=== PATIENT | male | born 2000 | race Two or more races ===

== ENCOUNTER 2021-12-06 14:14 | Emergency (ER) | payer MEDICAID ==
[2021-12-06] MEDS ORDERED: IBUPROFEN 800 MG TAB PO ONE (17:15)
[2021-12-06] MEDS ORDERED: IBUP800T27 PO (17:20)
[2021-12-06 17:32] VITALS: BP 135/70
== END 2021-12-06 17:06 | disposition home or self-care (01) ==
LOC: ER 14:14
DX: B34.9 Viral infection, unspecified (principal); R51.9 Headache, unspecified; Z20.822 Contact with and (suspected) exposure to COVID-19
CPT/HCPCS: 36415

== ENCOUNTER 2022-01-25 12:24 | Emergency (ER) | payer MEDICAID ==
[~2022-01-25] VITALS: Ht 180.3 cm; Wt 55.0 kg
[~2022-01-25 12:24] MED LIST: IBUP800T27 PO
[2022-01-25 13:40] LABS: Urine Bacteria NONE SEEN /hpf (None Seen); Urine Blood Negative /uL (Negative); Urine Mucus FEW (None Seen); Urine Specific Gravity 1.031 (1.001-1.035); Urine WBC 1 /hpf (0 - 3)
[2022-01-25] MEDS ORDERED: ONDA-144 PO (14:55)
[2022-01-25] MEDS ORDERED: PANT40TA2 PO (14:55)
[2022-01-25 15:05] VITALS: BP 119/93
== END 2022-01-25 15:08 | disposition home or self-care (01) ==
LOC: ER 12:24
DX: R11.2 Nausea with vomiting, unspecified (principal)
CPT/HCPCS: 81001

== ENCOUNTER 2023-06-04 15:38 | Emergency (ER) | payer MEDICAID ==
[~2023-06-04] VITALS: Ht 154.9 cm; Wt 126.3 kg
[~2023-06-04 15:38] MED LIST changes: +IBUP-1456 PO; -IBUP800T27 PO; +ONDA-144 PO; +PANT40TA2 PO
[2023-06-04] MEDS ORDERED: ONDANSETRON ODT 4 MG TAB PO ONE (17:15)
[2023-06-04] MEDS ORDERED: MECLIZINE HCL 25 MG TAB PO ONE (17:15)
[2023-06-04 17:40] LABS: Basophils # (auto) 0.1 10 ^3/uL (0-0.2); Basophils % (auto) 0.4 % (0.0-2.0); Eosinophils # (auto) 0.1 10 ^3/uL (0-0.8); Eosinophils % (auto) 0.6 % (0.0-7.0); Hematocrit 47.1 % (41.0-53.0); Hemoglobin 15.3 g/dL (13.5-17.5); Lymphocytes # (auto) 2.6 10 ^3/uL (0.4-5.4); Lymphocytes % (auto) 18.1 % (10.0-50.0); Mean Corpuscular Hemoglobin 27.3 pg (28.0-32.0); Mean Corpuscular Hgb Conc. 32.4 g/dL (32.0-36.0); Mean Corpuscular Volume 84.1 fL (80.0-100.0); Monocytes # (auto) 0.8 10 ^3/uL (0-1.3); Monocytes % (auto) 5.6 % (0.0-12.0); Neutrophils # (auto) 10.8 10 ^3/uL (1.6-8.6); Neutrophils % (auto) 75.3 % (37.0-80.0); Red Cell Distribution Width 13.1 % (11.8-14.3); White Blood Cell 14.4 10^3/uL (4.4-10.8)
[2023-06-04 18:01] LABS: Alanine Aminotransferase 64 U/L (7-40); Albumin 4.5 g/dL (3.2-4.8); Alkaline Phosphatase 115 U/L (46-116); Anion Gap 6 (5-15); Aspartate Aminotransferase 25 U/L (13-40); Bilirubin, Total 0.3 mg/dL (0.2-1.0); Calcium 9.8 mg/dL (8.5-10.1); Carbon Dioxide 29 mmol/L (20-30); Chloride 104 mmol/L (98-107); Glucose 90 mg/dL (74-106); Potassium 3.9 mmol/L (3.5-5.1); Sodium 139 mmol/L (136-145); Total Protein 7.2 g/dL (5.7-8.2)
[2023-06-04 18:56] LABS: BUN/Creatinine Ratio 5.9 (10.0-20.0); Blood Urea Nitrogen < 5 mg/dL (9-23)
[2023-06-04 20:31] LABS: Urine Epithelial Cast None Seen /hpf (<5)
[2023-06-04 20:48] LABS: Urine Bacteria NONE SEEN /hpf (None Seen); Urine Blood Negative /uL (Negative); Urine Clarity Clear (Clear); Urine Color Yellow (Yellow); Urine Mucus FEW (None Seen); Urine Protein, UAD TRACE (Negative); Urine Specific Gravity 1.025 (1.001-1.035); Urine WBC <1 /hpf (0 - 3); Urine pH 6.5 (5.0-8.0)
[2023-06-04 20:55] LABS: Amphetamine Screen, Urine Neg (NEGATIVE); Benzodiazephine Screen, Urine Neg (NEGATIVE)
[2023-06-04 20:56] LABS: Barbiturate Scree,Urine Neg (NEGATIVE); Cannabinoid Screen, Urine Neg (NEGATIVE); Cocaine Screen, Urine Neg (NEGATIVE); Opiate Scree,Urine Neg (NEGATIVE); Phencyclidine Screen, Urine Neg (NEGATIVE)
[2023-06-04] MEDS ORDERED: MECL1TAB42 PO (21:16)
[2023-06-04] MEDS ORDERED: ZOFR4T PO (21:16)
[2023-06-04 22:45] VITALS: BP 146/87; PULSE 96; RESP 18; TEMP 98; O2SAT 97
== END 2023-06-04 22:45 | disposition home or self-care (01) ==
LOC: ER 15:38
DX: R42 Dizziness and giddiness (principal); T50.905A Adverse effect of unspecified drugs, medicaments and biological substances, initial encounter; R11.0 Nausea; F41.9 Anxiety disorder, unspecified; F20.9 Schizophrenia, unspecified; Z79.899 Other long term (current) drug therapy; Y92.9 Unspecified place or not applicable
CPT/HCPCS: 36415; 71046; 80053; 80307; 81001; 85025; 99284; J8597; Q0162

== ENCOUNTER 2023-07-29 12:39 | Emergency (ER) | payer MEDICAID ==
[~2023-07-29] VITALS: Ht 180.3 cm; Wt 138.5 kg
[~2023-07-29 12:39] MED LIST changes: +MECL1TAB42 PO; +ZOFR4T PO
[2023-07-29 13:37] LABS: Amphetamine Screen, Urine Neg (NEGATIVE); Barbiturate Scree,Urine Neg (NEGATIVE); Benzodiazephine Screen, Urine Neg (NEGATIVE); Cocaine Screen, Urine Neg (NEGATIVE)
[2023-07-29 13:38] LABS: Cannabinoid Screen, Urine Neg (NEGATIVE); Opiate Scree,Urine Neg (NEGATIVE); Phencyclidine Screen, Urine Neg (NEGATIVE)
[2023-07-29 15:55] VITALS: BP 113/69; PULSE 78; RESP 18; O2SAT 97
[2023-07-29] MEDS: ONDANSETRON ODT 4 MG TAB PO ONE (15:56)
== END 2023-07-29 16:05 | disposition home or self-care (01) ==
LOC: ER 12:39
DX: F41.9 Anxiety disorder, unspecified (principal); F20.9 Schizophrenia, unspecified; F31.9 Bipolar disorder, unspecified; Z79.899 Other long term (current) drug therapy
CPT/HCPCS: 80307; 99283; Q0162

== ENCOUNTER 2024-03-26 22:51 | Inpatient (IN) | payer MEDICAID ==
[~2024-03-26] VITALS: Ht 175.3 cm; Wt 134.5 kg
[2024-03-26 23:03] VITALS: PULSE 73; RESP 28; O2SAT 97
--- NOTE | 2024-03-26 23:35 | ED.PDOC ---
History of Present Illness HPI Comments 23 y/o M, with a Hx of anxiety, depression, and schizophrenia, is BIBA s/p overdose, today. Patient reports consuming all of his Abilify medications after having a "hallucination," where he received a phone-call from an unknown individual, instructing him to take his "pills" in order to "hurt himself" or, if not, him and his entire family wound be "hurt." Patient states on having similar hallucinations in the past. Patient admits to feeling better, now. Patient denies having any suicidal/homicidal ideations or any symptoms at this time. Chief Complaint: Overdose Time Seen by MD: 23:20 Primary Care Provider: SNEHA Johansen Notes: Nurses Notes, Ward Aide Notes, Medications, Allergies Allergies: Coded Allergies: Fluoxetine (Verified Allergy, Unknown, 07/29/23) Home Meds Active Scripts Ondansetron Odt 4MG Tab (ZOFRAN PO) 4 Mg Tb, 4 MG PO Q6HP PRN, #15 TAB ODT TAB-DISSOLVE IN MOUTH, THEN SWALLOW Prov:LALI BERNSTEIN PAC 06/04/23 Meclizine HCl (Meclizine 25) 25 Mg Tab, 25 MG PO Q8HP PRN, #10 TAB Prov:LALI BERNSTEIN PAC 06/04/23 Ondansetron (Zofran) 4 Mg Tab, 4 MG PO DAILY, #20 MG Prov:DESTINEY SHOEMAKER DO 01/25/22 Pantoprazole Sodium Sesquihydr (Protonix) 40 Mg Tab, 40 MG PO DAILY, #30 TAB Prov:DESTINEY SHOEMAKER DO 01/25/22 Ibuprofen (Ibuprofen) 800 Mg Tab, 800 MG PO TID PRN, #30 TAB Prov:PURVI SELLERS 12/06/21 Information Source: Patient, Emergency Med Personnel Mode of Arrival: EMS Severity: Moderate Timing: Hours Duration: Since onset Prehospital treatment: 12 Lead EKG, Accucheck (138), Bone Crusher, Other (18G LAC) Past Medical History PAST MEDICAL HISTORY: Anxiety, Depression, Schizophrenia Surgical History: Denies all surgeries Family History Family History: Reviewed,noncontributory to illness Social History Smoker: Other (nicotine vape ) Alcohol: Denies ETOH Use Drugs: Denies Drug Use Lives In: Home Constitutional: denies: chills, diaphoresis, fatigue, fever, malaise, sweats, weakness, others EENTM: denies: blurred vision, double vision, ear bleeding, ear discharge, ear drainage, ear pain, ear ringing, eye pain, eye redness, hearing loss, mouth pain, mouth swelling, nasal discharge, nose bleeding, nose congestion, nose pain, photophobia, tearing, throat pain, throat swelling, voice changes, others Respiratory: denies: cough, hemoptysis, orthopnea, SOB at rest, shortness of breath, SOB with excertion, stridor, wheezing, others Cardiovascular: denies: chest pain, dizzy spells, diaphoresis, Dyspnea on exertion, edema, irregular heart beat, left arm pain, lightheadedness, palpitations, PND, syncope, others Gastrointestinal: denies: abdomen distended, abdominal pain, blood streaked bowels, constipated, diarrhea, dysphagia, difficulty swallowing, hematemesis, melena, nausea, poor appetite, poor fluid intake, rectal bleeding, rectal pain, vomiting, others Genitourinary: denies: burning, dysuria, flank pain, frequency, hematuria, incontinence, penile discharge, penile sore, pain, testicle pain, testicle swelling, urgency, others Neurological: denies: dizziness, fainting, headache, left sided numbness, left sided weakness, numbness, paresthesia, pre-existing deficit, right sided numbness, right sided weakness, seizure, speech problems, tingling, tremors, weakness, others Musculoskeletal: denies: back pain, gout, joint pain, joint swelling, muscle pain, muscle stiffness, neck pain, others Integumetry: denies: bruises, change in color, change in hair/nails, dryness, laceration, lesions, lumps, rash, wounds, others Allergic/Immunocompromised: denies: Difficulty Healing, Frequent Infections, Hives, Itching, others Hematologic/Lymphatic: denies: anemia, blood clots, easy bleeding, easy bruising, swollen glands, others Endocrine: denies: excessive hunger, excessive sweating, excessive thirst, excessive urination, flushing, intolerance to cold, intolerance to heat, unexplained weight gain, unexplained weight loss, others Psychiatric: denies: anxiety, bipolar disorder, depression, hopeless, panic disorder, schizophrenia, sleepless, suicidal, others All Other Systems: Reviewed and Negative Physical Exam General Appearance: Moderate Distress HEENT: Normal ENT Inspection, Pharynx Normal, TMs Normal Neck: Full Range of Motion, Non-Tender, Normal, Normal Inspection Respiratory: Chest Non-Tender, Lungs Clear, No Accessory Muscle Use, No Respiratory Distress, Normal Breath Sounds Cardiovascular: No Edema, No JVD, No Murmur, No Gallop, Normal Peripheral Pulses, Regular Rate/Rhythm Breast Exam: Deferred Gastrointestinal: No Organomegaly, Non Tender, No Pulsatile Mass, Normal Bowel Sounds, Soft Genitalia: Deferred Pelvic: Deferred Rectal: Deferred Extremities: No calf tenderness, Normal capillary refill, Normal inspection, Normal range of motion, Non-tender, No pedal edema Musculoskeletal : Apperance: Normal Neurologic: Alert, 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 Was a procedure done?: No EKG EKG : Pulse Rate (adult): 74 [place]: Normal Cardiac Rhythm: NSR Block: None Hypertrophy: None ST: Normal Differential Dx Considerations may include: substance abuse, substance overdose, schizophrenia X-Ray, Labs, Meds, VS Vital Signs Date Time Temp Pulse Resp B/P (MAP) Pulse Ox O2 Delivery O2 Flow Rate FiO2 03/26/24 23:35 74 03/26/24 23:03 74 03/26/24 22:55 98.9 83 23 124/79 (94) 96 Lab Test 03/26/24 23:47 03/26/24 23:30 Range/Units White Blood Count Pending Red Blood Count Pending Hemoglobin Pending Hematocrit Pending Mean Corpuscular Volume Pending Mean Corpuscular Hemoglobin Pending Mean Corpuscular Hemoglobin Concent Pending Red Cell Distribution Width Pending Platelet Count Pending Mean Platelet Volume Pending Neutrophils (%) (Auto) Pending Lymphocytes (%) (Auto) Pending Monocytes (%) (Auto) Pending Basophils (%) (Auto) Pending Neutrophils # (Auto) Pending Lymphocytes # (Auto) Pending Monocytes # (Auto) Pending Sodium Level Pending Potassium Level Pending Chloride Level Pending Carbon Dioxide Level Pending Anion Gap Pending Blood Urea Nitrogen Pending Creatinine Pending Glomerular Filtration Rate Calc Pending BUN/Creatinine Ratio Pending Serum Glucose Pending Calcium Level Pending Total Bilirubin Pending Aspartate Amino Transferase (AST) Pending Alanine Aminotransferase (ALT) Pending Alkaline Phosphatase Pending Total Protein Pending Albumin Pending Salicylates Level Pending Acetaminophen Level Pending Plasma/Serum Blood Alcohol Pending Urine Opiates Screen Pending Urine Fentanyl Screen Pending Urine Barbiturates Screen Pending Urine Phencyclidine Screen Pending Urine Amphetamines Screen Pending Urine Benzodiazepines Screen Pending Urine Cocaine Screen Pending Urine Cannabinoids Screen Pending Patient alert. Answering all questions appropriately. Hearing voices. Vitals stable. History of schizophrenia. Voices were telling him to harm himself. Patient denies suicidal or homicidal ideation in the ER. Reviewed his history. Explained to the patient treatment plan. Medically cleared. Psychiatric evaluation. Time of 1ST Reevaluation: 23:50 Reevaluation 1ST: Improved Patient Education/Counseling: Diagnosis, Treatment Family Education/Counseling: No Family Present Departure 1 Departure Time of Disposition: 00:02 Impression: Primary Impression: Suicidal ideation Additional Impressions: Hallucination Schizophrenia Qualified Codes: F20.9 - Schizophrenia, unspecified Disposition: 30 STILL A PATIENT Condition: Good Critical Care Note Critical Care Time?: Yes (45 min-critical care time only) Stability Stability form required: No Heart Score Heart Score: Heart Score Response (Comments) Value History N/A 0 EKG N/A 0 Age N/A 0 Risk Factors N/A 0 Troponin N/A 0 Total 0 I personally scribed for EDWAR LAWS MD ([email or web address]) on 03/26/24 at 23:35. Electronically submitted by Bhanu Tripp ([email or web address]). EDWAR LAWS MD Mar 26, 2024 23:35
[2024-03-27] LABS: Basophils # (auto) 0 10 ^3/uL (0-0.2); Basophils % (auto) 0.5 % (0.0-2.0); Eosinophils # (auto) 0.1 10 ^3/uL (0-0.8); Eosinophils % (auto) 0.8 % (0.0-7.0); Hematocrit 42.2 % (41.0-53.0); Lymphocytes # (auto) 3.7 10 ^3/uL (0.4-5.4); Mean Corpuscular Hemoglobin 27.6 pg (28.0-32.0); Mean Corpuscular Hgb Conc. 33.1 g/dL (32.0-36.0); Mean Corpuscular Volume 83.4 fL (80.0-100.0); Monocytes # (auto) 0.6 10 ^3/uL (0-1.3); Monocytes % (auto) 6.7 % (0.0-12.0); Nucleated Red Blood Cells % 0.1 %; Platelet Count (auto) 295 10^3/uL (140-450); Red Blood Cells 5.06 10^6/uL (4.5-5.90); Red Cell Distribution Width 13.3 % (11.8-14.3); White Blood Cell 8.4 10^3/uL (4.4-10.8)
[2024-03-27 00:13] LABS: Amphetamine Screen, Urine Neg (NEGATIVE); Barbiturate Scree,Urine Neg (NEGATIVE); Benzodiazephine Screen, Urine Neg (NEGATIVE)
[2024-03-27 00:14] LABS: Cannabinoid Screen, Urine Neg (NEGATIVE); Cocaine Screen, Urine Neg (NEGATIVE); Opiate Scree,Urine Neg (NEGATIVE); Phencyclidine Screen, Urine Neg (NEGATIVE)
[2024-03-27 00:15] LABS: Acetaminophen < 2.0 UG/ML (10.0-20.0)
[2024-03-27 00:16] LABS: Alanine Aminotransferase 66 U/L (7-40); Albumin 4.2 g/dL (3.2-4.8); Alkaline Phosphatase 97 U/L (46-116); Anion Gap 6 (5-15); Aspartate Aminotransferase 26 U/L (13-40); Bilirubin, Total 0.2 mg/dL (0.2-1.0); Blood Alcohol < 3.0 mg/dL (<10); Blood Urea Nitrogen 5 mg/dL (9-23); Calcium 9.4 mg/dL (8.7-10.4); Carbon Dioxide 26 mmol/L (20-31); Chloride 108 mmol/L (98-107); Glucose 117 mg/dL (74-106); Potassium 3.7 mmol/L (3.5-5.1); Sodium 140 mmol/L (136-145); Total Protein 6.9 g/dL (5.7-8.2)
[2024-03-27 00:31] LABS: Salicylate < 3.0 mg/dL (-30)
[2024-03-27 07:30] VITALS: O2SAT 97
--- NOTE | 2024-03-27 09:59 | DVHINCON2 ---
Date of Service if different f: Mar 27, 2024 Time of Service: 09:26 Consultation ([facility]) Consulting Physician: JESSE JACOBSON MD Labs Laboratory Tests Test 03/26/24 23:30 03/26/24 23:47 Urine Opiates Screen Neg (NEGATIVE) Urine Fentanyl Screen Neg (NEGATIVE) Urine Barbiturates Screen Neg (NEGATIVE) Urine Phencyclidine Screen Neg (NEGATIVE) Urine Amphetamines Screen Neg (NEGATIVE) Urine Benzodiazepines Screen Neg (NEGATIVE) Urine Cocaine Screen Neg (NEGATIVE) Urine Cannabinoids Screen Neg (NEGATIVE) White Blood Count 8.4 10^3/uL (4.4-10.8) Red Blood Count 5.06 10^6/uL (4.5-5.90) Hemoglobin 14.0 g/dL (13.5-17.5) Hematocrit 42.2 % (41.0-53.0) Mean Corpuscular Volume 83.4 fL (80.0-100.0) Mean Corpuscular Hemoglobin 27.6 pg (28.0-32.0) Mean Corpuscular Hemoglobin Concent 33.1 g/dL (32.0-36.0) Red Cell Distribution Width 13.3 % (11.8-14.3) Platelet Count 295 10^3/uL (140-450) Mean Platelet Volume 7.2 fL (6.9-10.8) Neutrophils (%) (Auto) 48.0 % (37.0-80.0) Lymphocytes (%) (Auto) 44.0 % (10.0-50.0) Monocytes (%) (Auto) 6.7 % (0.0-12.0) Eosinophils (%) (Auto) 0.8 % (0.0-7.0) Basophils (%) (Auto) 0.5 % (0.0-2.0) Neutrophils # (Auto) 4.0 10 ^3/uL (1.6-8.6) Lymphocytes # (Auto) 3.7 10 ^3/uL (0.4-5.4) Monocytes # (Auto) 0.6 10 ^3/uL (0-1.3) Eosinophils # (Auto) 0.1 10 ^3/uL (0-0.8) Basophils # (Auto) 0 10 ^3/uL (0-0.2) Nucleated Red Blood Cells 0.1 % Sodium Level 140 mmol/L (136-145) Potassium Level 3.7 mmol/L (3.5-5.1) Chloride Level 108 mmol/L (98-107) Carbon Dioxide Level 26 mmol/L (20-31) Anion Gap 6 (5-15) Blood Urea Nitrogen 5 mg/dL (9-23) Creatinine 0.84 mg/dL (0.700-1.30) Glomerular Filtration Rate Calc 125 mL/min (>90) BUN/Creatinine Ratio 6.0 (10.0-20.0) Serum Glucose 117 mg/dL (74-106) Calcium Level 9.4 mg/dL (8.7-10.4) Total Bilirubin 0.2 mg/dL (0.2-1.0) Aspartate Amino Transf (AST/SGOT) 26 U/L (13-40) Alanine Aminotransferase (ALT/SGPT) 66 U/L (7-40) Alkaline Phosphatase 97 U/L (46-116) Total Protein 6.9 g/dL (5.7-8.2) Albumin 4.2 g/dL (3.2-4.8) Salicylates Level < 3.0 mg/dL (-30) Acetaminophen Level < 2.0 UG/ML (10.0-20.0) Plasma/Serum Blood Alcohol < 3.0 mg/dL (<10) Appearance: Stated age Psychomotor activity: WNL Behavioral: Cooperative Eye contact: Appropriate Speech: WNL, Clear Affect: Appropriate, Mood Congruent Mood: Anxious Thought processes: Linear/Goal-directed Thought content: Hallucinations Suicidal ideations: Absent Homicidal ideations: Absent Orientation: Person, Place, Time, Situation Memory intact: Recent Intellect: Average Abstractability: WNL Concentration: Adequate Attention: Adequate Judgement: Poor Insight: Fair Vitals Vital Signs Date Time Temp Pulse Resp B/P (MAP) Pulse Ox O2 Delivery O2 Flow Rate FiO2 03/27/24 06:00 73 15 110/70 (83) 96 03/26/24 23:03 Room Air* 0 21 03/26/24 23:03 98.8 98.8 Treatment plan discussed: With staff Medication adjusted: Yes Labs ordered: No Psychotherapy provided: No Type: Voluntary History of Present Illness Reason for Consult : psychiatric evaluation for overdose. PER ED PHYSICIAN: 23 y/o M, with a Hx of anxiety, depression, and schizophrenia, is BIBA s/p overdose, today. Patient reports consuming all of his Abilify medications after having a "hallucination," where he received a phone-call from an unknown individual, instructing him to take his "pills" in order to "hurt himself" or, if not, him and his entire family wound be "hurt." Patient states on having similar hallucinations in the past. Patient admits to feeling better, now. Patient denies having any suicidal/homicidal ideations or any symptoms at this time. PSYCHIATRIST HPI: The patient was seen and evaluated at [facility] ED via telepsychiatry platform. 23 yr old male CHHAYA after taking 30 abilify tablets. He stated he heard a voice which told him to take all his abilify. He reported "I thought i had a phone call telling me to do something to myself or they would do something to my family." He stated that was the first time he had that experience. He reported the hallucinations have been going on for a couple weeks. Yesterday was the first time he felt the hallucination was real, so it scared him into taking the medications. He said his mood has been doing pretty good. His anger has been decreasing and he stated he learned to control his anger and aggression. He stated aggression was an issue for him in the past, but not lately. He denied having SI/HI/VH. Past Psychiatric History : More than ten hospitalizations, last hospitalized in beginning of 2023 at [facility] in [place]. Four past suicide attempts. Diagnosed with schizophrenia since age 12. Sees Psychological Services on [facility]. Current medications: abilify 5 mg qam Trazodone 50mg qhs Venlafaxine XR 75mg qam Hydroxyzine 50mg PRN Divalproex 1500mg qhs Substance use: Denied alcohol and other substance use. Social History : Lives in [place] with mother and roommates. Received GED. Unemployed. Receives SSI. Diagnosis: SCHIZOPHRENIA Formulation: This 23 yr old male appears to suffer from schizophrenia and had a command auditory hallucination leading him to take a large overdose of his medication. Given this following the command auditory hallucination puts him at high risk for self harm. He may benefit from admission to [facility] for observation, stabilization and treatment. He meets criteria for involuntary hospitalization on basis of danger to self and agrees to voluntary admission. Plan: 1. Transfer to behavioral health unit when medically cleared and bed available. 2. Legal-Voluntary, but meets criteria for 5150 involuntary hold on basis of danger to self. 3. Medications : Recommend holding the abilify on 03/27 due to the overdose last night (03/26) and restart Abilify 5mg qam Start Trazodone 50mg qhs for sleep Hydroxyzine 50mg BID PRN for anxiety Depakote DR 1500mg qhs Venalafaxine XR 75mg qam 4. Case discussed with ED RN Malissa. 5. Please contact psychiatry for further follow up or reevaluation as desired. Assessment/Diagnosis/Plan Reviewed: Medications, Previous Orders JESSE JACOBSON MD Mar 27, 2024 09:28
--- NOTE | 2024-03-27 10:57 | ECG ---
[facility] Test Date: 2024-03-26 Test Time: 23:03:19 Pat Name: LUZ MARINA EMERSONNICOLEODepartment: ER Room: 0274T Gender: M [employer] Developer: YADIRA : 2000 Requested By: EDWAR LAWS Order Number: [id number] Reading MD: Sheng Ortiz Measurements Intervals [place] Rate: 74 P: 65 GA: 151 QRS: 88 QRSD: 92 T: 66 QT: 383 QTc: 425 Interpretive Statements Sinus rhythm Electronically Signed On 03-30-2024 11:15:21 PST by Sheng Ortiz Please click the below link to view image of tracing.
[2024-03-27] MEDS: VENLAFAXINE HCL 37.5mg XR cap PO ONE (12:19)
[2024-03-27] MEDS: LORazepam 2MG/ML-1ML VIAL IV ONE ×2 (14:13→14:45)
[2024-03-27] MEDS: diphenhdrAMINE HCL 50 MG/1 ML VL IV ONE (15:33)
[2024-03-27] MEDS: SODIUM CHLORIDE 0.9% 1,000 ML IV ONE (15:47)
[2024-03-27 16:04] LABS: Basophils # (auto) 0.1 10 ^3/uL (0-0.2); Basophils % (auto) 0.6 % (0.0-2.0); Eosinophils # (auto) 0.1 10 ^3/uL (0-0.8); Eosinophils % (auto) 0.6 % (0.0-7.0); Hematocrit 44.2 % (41.0-53.0); Hemoglobin 15.2 g/dL (13.5-17.5); Lymphocytes # (auto) 3.4 10 ^3/uL (0.4-5.4); Lymphocytes % (auto) 37.1 % (10.0-50.0); Mean Corpuscular Hemoglobin 28.7 pg (28.0-32.0); Mean Corpuscular Hgb Conc. 34.4 g/dL (32.0-36.0); Mean Corpuscular Volume 83.4 fL (80.0-100.0); Monocytes # (auto) 0.6 10 ^3/uL (0-1.3); Monocytes % (auto) 6.1 % (0.0-12.0); Neutrophils # (auto) 5.1 10 ^3/uL (1.6-8.6); Neutrophils % (auto) 55.6 % (37.0-80.0); Platelet Count (auto) 324 10^3/uL (140-450); Red Cell Distribution Width 13.1 % (11.8-14.3); White Blood Cell 9.2 10^3/uL (4.4-10.8)
[2024-03-27 16:22] LABS: Acetaminophen < 2.0 UG/ML (10.0-20.0); Alanine Aminotransferase 61 U/L (7-40); Alkaline Phosphatase 102 U/L (46-116); Anion Gap 9 (5-15); Aspartate Aminotransferase 24 U/L (13-40); BUN/Creatinine Ratio 5.3 (10.0-20.0); Blood Alcohol < 3.0 mg/dL (<10); Blood Urea Nitrogen 5 mg/dL (9-23); Calcium 9.4 mg/dL (8.7-10.4); Carbon Dioxide 25 mmol/L (20-31); Chloride 107 mmol/L (98-107); Glucose 115 mg/dL (74-106); Potassium 3.7 mmol/L (3.5-5.1); Sodium 141 mmol/L (136-145)
[2024-03-27 16:23] LABS: Albumin 4.4 g/dL (3.2-4.8); Bilirubin, Total 0.2 mg/dL (0.2-1.0); Total Protein 7.3 g/dL (5.7-8.2)
[2024-03-27 16:48] LABS: Salicylate < 3.0 mg/dL (-30)
[2024-03-27] MEDS ORDERED: IBUPROFEN 600 MG TAB PO PRN (17:00)
[2024-03-27] MEDS ORDERED: NITROGLYCERIN 0.4 MG SL TAB SL PRN (17:00)
[2024-03-27] MEDS ORDERED: MORPHINE SULFATE INJ 2 MG/ml SYRG IV PRN (17:00)
[2024-03-27] MEDS ORDERED: DOCUSATE SOD 100 MG CAP PO PRN (17:00)
--- NOTE | 2024-03-27 17:02 | DVHHP2 ---
History of Present Illness Reason for Visit: Suicidal ideation History of Present Illness The patient is a 23-year-old male with past medical history of depression, anxiety, and schizophrenia who presented to [facility] ED for evaluation suicidal ideation by drugs overdose. Patient reports consuming all of his Abilify medications after having a "hallucination," where he received a phone-call from an unknown individual, instructing him to take his "pills" in order to "hurt himself" or, if not, him and his entire family wound be "hurt." Patient states on having similar hallucinations in the past. He is also increasingly sedated with tremors and will need to be admitted to the hospital for better observation. Patient was seen and evaluated in the ED, laboratory data shows WBC 9.2, platelets 324, sodium 141, potassium 3.7, BUN 6, creatinine 0.94, glucose 115, AST 24, ALT 61, blood pressure 116/81, heart rate 79, t emperature 98.1 F, O2 saturation 97% on oxygen. Please see medication orders section in the computer. On my assessment, mother at bedside, patient denied chest pain, no headache, no dizziness, no shortness of breath, no suicidal/homicidal ideation, no visual or auditory hallucination at this moment, no nausea, no vomiting, no fever, no chills. Patient was admitted for further evaluation and medical management. Past Medical History Anxiety, Depression, Schizophrenia Past Surgical History Denies all surgeries Family History Reviewed, noncontributory to the management of this case. Past Social History Patient lives at home, smokes nicotine vape, denies alcohol or illicit drugs abuse. Review of Systems Constitutional: Yes: Weakness; No: Fever, Chills, Sweats, Malaise, Other Eyes: No: Pain, Vision change, Conjunctivae inflammation, Eyelid inflammation, Other, Redness ENT: No: Ear pain, Ear discharge, Nose pain, Nose discharge, Nose congestion, Mouth pain, Mouth swelling, Throat pain, Throat swelling, Other Respiratory: No: Cough, Dry, Shortness of breath, SOB with excertion, Wheezing, Hemoptysis, Pleuritic Pain, Sputum, Wheezing, Other Cardiovascular: No: Chest Pain, Palpitations, Orthopnea, Paroxysmal Noc. Dyspnea, Edema, Lt Headedness, Other Gastrointestinal: No: Nausea, Vomiting, Abdominal Pain, Diarrhea, Constipation, Melena, Hematochezia, Other Genitourinary: No Dysuria, No Frequency, No Incontinence, No Hematuria, No Retention, No Other Musculoskeletal: No: other, neck pain, shoulder pain, arm pain, back pain, hand pain, leg pain, foot pain Neurological: No: Weakness, Numbness, Incoordination, Change in speech, Confusion, Seizures, Other Other Psychiatric: Schizophrenia, suicidal ideation, depression, hallucination, denies: anxiety, bipolar disorder, hopeless, panic disorder, sleepless, suicida l, others Allergies: Coded Allergies: Fluoxetine (Verified Allergy, Unknown, 07/29/23) Medications Current Medications Medications Dose Ordered Sig/Rosalba Route Start Time Stop Time Status Last Admin Dose Admin Hydroxyzine Pamoate 50 mg BID PRN PO 03/27/24 11:30 Trazodone HCl 50 mg HS PO 03/27/24 22:00 Divalproex Sodium 1,500 mg HS PO 03/27/24 22:00 Venlafaxine HCl 75 mg DAILY PO 03/28/24 10:00 Sodium Chloride 10 ml Q8HR IV 03/27/24 22:00 UNV Ondansetron HCl 4 mg Q4HP PRN IV 03/27/24 17:00 UNV Docusate Sodium 100 mg BIDPRN PRN PO 03/27/24 17:00 UNV Nitroglycerin 0.4 mg Q5MINP PRN SL 03/27/24 17:00 UNV Morphine Sulfate 2 mg Q30M PRN IV 03/27/24 17:00 UNV Ibuprofen 600 mg Q6HP PRN PO 03/27/24 17:00 UNV Exam Vital Signs Vital Signs Date Time Temp Pulse Resp B/P (MAP) Pulse Ox O2 Delivery O2 Flow Rate FiO2 03/27/24 10:51 79 03/27/24 09:00 10 116/81 (93) 97 03/27/24 07:30 Room Air* 0 21 03/27/24 07:00 98.1 98.1 General Appearance: Alert, Oriented X3, Cooperative, No acute distress HEENT: Atraumatic, PERRLA, EOMI, Mucous membr. moist/pink Respiratory: Clear to auscultation, Normal air movement Cardiovascular: Regular rate, Normal S1, Normal S2, No murmurs Abdominal: Normal bowel sounds, Soft, No tenderness, No hepatospenomegaly, No masses Extremities: No clubbing, No cyanosis, No edema, Normal pulses, No tenderness/swelling Skin: No rashes, No breakdown, No significant lesion Neuro: Normal speech, Normal tone, Sensation intact, Cranial nerves 3-12 NL, Reflexes 2+, Other (Generalized weakness) Psych/Mental Status: Mental status NL, Mood NL Labs/Xrays Labs Test 03/27/24 15:43 03/26/24 23:30 Range/Units White Blood Count 9.2 4.4-10.8 10^3/uL Red Blood Count 5.30 4.5-5.90 10^6/uL Hemoglobin 15.2 13.5-17.5 g/dL Hematocrit 44.2 41.0-53.0 % Mean Corpuscular Volume 83.4 80.0-100.0 fL Mean Corpuscular Hemoglobin 28.7 28.0-32.0 pg Mean Corpuscular Hemoglobin Concent 34.4 32.0-36.0 g/dL Red Cell Distribution Width 13.1 11.8-14.3 % Platelet Count 324 140-450 10^3/uL Mean Platelet Volume 7.3 6.9-10.8 fL Neutrophils (%) (Auto) 55.6 37.0-80.0 % Lymphocytes (%) (Auto) 37.1 10.0-50.0 % Monocytes (%) (Auto) 6.1 0.0-12.0 % Eosinophils (%) (Auto) 0.6 0.0-7.0 % Basophils (%) (Auto) 0.6 0.0-2.0 % Neutrophils # (Auto) 5.1 1.6-8.6 10 ^3/uL Lymphocytes # (Auto) 3.4 0.4-5.4 10 ^3/uL Monocytes # (Auto) 0.6 0-1.3 10 ^3/uL Eosinophils # (Auto) 0.1 0-0.8 10 ^3/uL Basophils # (Auto) 0.1 0-0.2 10 ^3/uL Nucleated Red Blood Cells 0.0 % Sodium Level 141 136-145 mmol/L Potassium Level 3.7 3.5-5.1 mmol/L Chloride Level 107 98-107 mmol/L Carbon Dioxide Level 25 20-31 mmol/L Anion Gap 9 5-15 Blood Urea Nitrogen 5 L 9-23 mg/dL Creatinine 0.94 0.700-1.30 mg/dL Glomerular Filtration Rate Calc 116 >90 mL/min BUN/Creatinine Ratio 5.3 L 10.0-20.0 Serum Glucose 115 H 74-106 mg/dL Calcium Level 9.4 8.7-10.4 mg/dL Total Bilirubin 0.2 0.2-1.0 mg/dL Aspartate Amino Transferase (AST) 24 13-40 U/L Alanine Aminotransferase (ALT) 61 H 7-40 U/L Alkaline Phosphatase 102 46-116 U/L Total Protein 7.3 5.7-8.2 g/dL Albumin 4.4 3.2-4.8 g/dL Salicylates Level < 3.0 -30 mg/dL Acetaminophen Level < 2.0 L 10.0-20.0 UG/ML Plasma/Serum Blood Alcohol < 3.0 <10 mg/dL Urine Opiates Screen Neg NEGATIVE Urine Fentanyl Screen Neg NEGATIVE Urine Barbiturates Screen Neg NEGATIVE Urine Phencyclidine Screen Neg NEGATIVE Urine Amphetamines Screen Neg NEGATIVE Urine Benzodiazepines Screen Neg NEGATIVE Urine Cocaine Screen Neg NEGATIVE Urine Cannabinoids Screen Neg NEGATIVE Assessment/Plan Assessment/Plan Suicidal ideation Tremor due to drug withdrawal Hallucination Schizophrenia Schizophrenia, unspecified Plan 1. Admit to telemetry unit 2. Breathing treatment 3. Pain control management 4. Management of fluids and electrolytes 5. Consultation for Psychiatry 6. Diagnostic tests x-ray 7. DVT prophylaxis-on SCDs 8. Repeat labs CBC, CMP in a.m. 9. Continue with current medical management 10. Treatment plan discussed with patient and RN. Patient/mother verbalized understanding. Plan discussed with: Patient, Other (RN) My Orders Orders - MATTY DARLING DNP Procedure Category Date Status Time Admit ADMIT 03/27/24 Transmitted 16:53 Allergies MINO 03/27/24 Transmitted 16:53 Code Status CODE 03/27/24 Transmitted 16:53 Sodium Chloride Lock PHA 03/27/24 Logged (Saline Lock Ns) 22:00 Oxygen Per Hour RT 03/27/24 Transmitted 16:53 Ondansetron Hcl PHA 03/27/24 Logged (Zofran) 17:00 Docusate Sodium PHA 03/27/24 Logged Capsule (Colace 17:00 Complete Blood Count LAB 03/28/24 Verified 04:00 Comprehensive LAB 03/28/24 Verified Metabolic Panel 04:00 Condition: Serious [facility] 03/27/24 Transmitted 16:53 Bedrest With Bathroom [facility] 03/27/24 Transmitted Privileg 16:53 Sequential [facility] 03/27/24 Transmitted Compression Device Nitroglycerin [facility] 03/27/24 Logged Sublingual (Ntrostat 17:00 Morphine Sulfate [facility] 03/27/24 Logged Injection 17:00 Notify Of Changes [facility] 03/27/24 Transmitted From Base 16:53 Make Up Editor For [facility] 03/27/24 Transmitted 24 Hours 16:53 Emergency Dysrhythmia [facility] 03/27/24 Transmitted Protocol 16:53 Rhythm Strips Once [facility] 03/27/24 Transmitted Every Shift 16:53 Oxygen By Nasal 03/27/24 Transmitted Cannula 16:53 Ibuprofen Tablet [facility] 03/27/24 Logged (Motrin Tablet) 17:00 Problem List: (1) Suicidal ideation (2) Schizophrenia (3) Tremor due to drug withdrawal (4) Hallucination (5) Schizophrenia, unspecified Date of Service: Mar 27, 2024 Billing Provider: MATTY DARLING DNP Common Visit Codes: [id number] INP/OBS CARE (HIGH) MATTY DARLING DNP Mar 27, 2024 17:02
[2024-03-27] MEDS: SODIUM CHLOR 0.9% PF (SALINE LOCK) 10ML VIAL/SYR IV SCH (21:04)
[2024-03-27] MEDS: traZODone HCL 50 MG TAB PO SCH (21:50)
[2024-03-27] MEDS ORDERED: traZODone HCL 50 MG TAB PO ONE (22:00)
[2024-03-28 04:07] LABS: Basophils # (auto) 0 10 ^3/uL (0-0.2); Basophils % (auto) 0.3 % (0.0-2.0); Eosinophils # (auto) 0.1 10 ^3/uL (0-0.8); Eosinophils % (auto) 0.7 % (0.0-7.0); Hematocrit 42.2 % (41.0-53.0); Hemoglobin 14.2 g/dL (13.5-17.5); Lymphocytes # (auto) 4.1 10 ^3/uL (0.4-5.4); Lymphocytes % (auto) 45.2 % (10.0-50.0); Mean Corpuscular Hemoglobin 28.2 pg (28.0-32.0); Mean Corpuscular Hgb Conc. 33.6 g/dL (32.0-36.0); Monocytes # (auto) 0.5 10 ^3/uL (0-1.3); Monocytes % (auto) 5.9 % (0.0-12.0); Neutrophils # (auto) 4.3 10 ^3/uL (1.6-8.6); Neutrophils % (auto) 47.9 % (37.0-80.0); Platelet Count (auto) 290 10^3/uL (140-450); Red Blood Cells 5.03 10^6/uL (4.5-5.90); Red Cell Distribution Width 13.4 % (11.8-14.3)
[2024-03-28 04:14] LABS: Alanine Aminotransferase 49 U/L (7-40); Albumin 4.1 g/dL (3.2-4.8); Alkaline Phosphatase 85 U/L (46-116); Anion Gap 5 (5-15); Aspartate Aminotransferase 14 U/L (13-40); BUN/Creatinine Ratio 6.3 (10.0-20.0); Bilirubin, Total 0.5 mg/dL (0.2-1.0); Blood Urea Nitrogen 6 mg/dL (9-23); Calcium 9.5 mg/dL (8.7-10.4); Carbon Dioxide 29 mmol/L (20-31); Chloride 109 mmol/L (98-107); Glucose 85 mg/dL (74-106); Potassium 4.2 mmol/L (3.5-5.1); Sodium 143 mmol/L (136-145); Total Protein 6.7 g/dL (5.7-8.2)
[2024-03-28 09:00] VITALS: PULSE 75; O2SAT 99
[2024-03-28] MEDS: VENLAFAXINE HCL 37.5mg XR cap PO SCH (10:17)
--- NOTE | 2024-03-28 14:43 | DVH ---
EXAM: CT HEAD WITHOUT CONTRAST INDICATION: seizure TECHNIQUE: CT of the head without intravenous contrast. Coronal and sagittal reformatted images are submitted. Radiation Dose : 1. Head: CT Dose: CTDI volume is 65.54 mGy. Dose-length product is 1050.42 mGy*cm The dose indicators for CT are the volume Computed Tomography (CT) Dose Index (CTDIvol) and the Dose Length Product (DLP), and are measured in units of mGy and mGy-cm, respectively. These indicators are not patient dose, but values generated from the CT scanner acquisition factors. The report includes radiation exposure data for exposures received during this examination. All CT scans at this medical facility are performed using dose modulation techniques as appropriate to a performed exam including the following: Automated exposure control was utilized; adjustment of the MA and/or KV according to patient size; and use of iterative reconstruction technique. COMPARISON: None FINDINGS: There is no evidence of acute intracranial hemorrhage, extra-axial collection, mass effect, midline s hift, herniation or hydrocephalus. The ventricles, sulci and cisterns are age appropriate. The lafleur-white differentiation is intact. The visualized paranasal sinuses and mastoid air cells are clear. No depressed calvarial fracture. The surrounding soft tissues are unremarkable. IMPRESSION: 1. No evidence of acute intracranial abnormality.
--- NOTE | 2024-03-28 16:09 | DVHPN2 ---
Subjective 23-year-old male with a history of depression, schizophrenia, seizures came with a chief complaint of having taken about 15 pills of Abilify 5 mg. He takes 5 mg daily of Abilify usually but apparently he was having hallucinations and voices told him to take the pills. He is completely alert and oriented now Changes from previous H/P or p: Changes Eyes: No Pain, No Vision change, No Conjunctivae inflammation, No Eyelid inflammation, No Other, No Redness ENT: No Ear pain, No Ear discharge, No Nose pain, No Nose discharge, No Nose congestion, No Mouth pain, No Mouth swelling, No Throat pain, No Throat swelling, No Other Cardiovascular: No Chest Pain, No Palpitations, No Orthopnea, No Paroxysmal Noc. Dyspnea, No Edema, No Lt Headedness, No Other Respiratory: No Cough, No Dry, No Shortness of breath, No SOB with excertion, No Wheezing, No Hemoptysis, No Pleuritic Pain, No Sputum, No Other Gastrointestinal: No Nausea, No Vomiting, No Abdominal Pain, No Diarrhea, No Constipation, No Melena, No Hematochezia, No Other Genitourinary: No Dysuria, No Frequency, No Incontinence, No Hematuria, No Retention, No Other Musculoskeletal: No other, No neck pain, No shoulder pain, No arm pain, No back pain, No hand pain, No leg pain, No foot pain Objective Vitals Vital Signs Date Time Temp Pulse Resp B/P (MAP) Pulse Ox O2 Delivery O2 Flow Rate FiO2 03/28/24 13:36 93 18 109/60 (76) 97 03/28/24 09:00 Nasal Cannula* 2 28 03/27/24 16:00 98.4 98.4 Intake/Output Intake and Output 03/28/24 07:00 Intake Total 1000 ml Output Total 750 ml Balance 250 ml Intake IV Total 1000 ml Output Urine Total 750 ml General Appearance: Alert, Oriented X3, Cooperative, No acute distress Lungs: Clear to auscultation, Normal air movement Cardiovascular: Regular rate, Normal S1, Normal S2 Abdomen: Normal bowel sounds, Soft, No tenderness Extremities: No edema Medications Current Medications Medications Dose Ordered Sig/Rosalba Route Start Time Stop Time Status Last Admin Dose Admin Hydroxyzine Pamoate 50 mg BID PRN PO 03/27/24 11:30 Trazodone HCl 50 mg HS PO 03/27/24 22:00 03/27/24 21:50 50 MG Divalproex Sodium 1,500 mg HS PO 03/27/24 22:00 03/27/24 21:49 1,500 MG Venlafaxine HCl 75 mg DAILY PO 03/28/24 10:00 03/28/24 10:17 75 MG Sodium Chloride 10 ml Q8HR IV 03/27/24 22:00 03/28/24 14:00 10 ML Ondansetron HCl 4 mg Q4HP PRN IV 03/27/24 17:00 Docusate Sodium 100 mg BIDPRN PRN PO 03/27/24 17:00 Nitroglycerin 0.4 mg Q5MINP PRN SL 03/27/24 17:00 Morphine Sulfate 2 mg Q30M PRN IV 03/27/24 17:00 Ibuprofen 600 mg Q6HP PRN PO 03/27/24 17:00 Laboratory Results Laboratory Tests 03/28/24 03:20 Chemistry Test 03/28/24 03:20 Albumin 4.1 g/dL (3.2-4.8) Calcium Level 9.5 mg/dL (8.7-10.4) Total Protein 6.7 g/dL (5.7-8.2) LFT Test 03/28/24 03:20 Alanine Aminotransferase (ALT) 49 U/L (7-40) H Alkaline Phosphatase 85 U/L (46-116) Aspartate Amino Transferase (AST) 14 U/L (13-40) Total Bilirubin 0.5 mg/dL (0.2-1.0) Assessment/Plan Assessment/Plan Suicide attempt Drug overdose Depression Schizophrenia Rule out Seizures Morbid obesity Plan The patient was seen by tele psychiatry and was recommended to transfer to behavioral health when medically cleared 5150, voluntary, patient is willing to go to psychiatric treatment Consult neurology CT scan of the head: Negative Resume the home medications: Depakote, hydroxyzine, trazodone, Effexor Plan discussed with: Patient, Other My Orders Orders - BERNARDINO COWART MD Procedure Category Date Status Time *Consult Dr. Perkins CONS 03/28/24 Transmitted Isaac 13:[address] 03/28/24 Resulted 13:55 Date of Service: Mar 28, 2024 Billing Provider: BERNARDINO COWART MD Common Visit Codes: [id number] INP/OBS CARE(HIGH) BERNARDINO COWART MD Mar 28, 2024 16:08
[2024-03-28 19:50] VITALS: PULSE 91; RESP 12; O2SAT 97
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
[2024-03-29] VITALS (8 sets, daily range): BP systolic 90–140; BP diastolic 54–73; PULSE 71–108; RESP 17–20; TEMP 97.1–98; O2SAT 97–100
[2024-03-29] MEDS ORDERED: DIVA500T13 PO (04:06)
[2024-03-29] MEDS ORDERED: AMOX500C2 PO (04:06)
[2024-03-29] MEDS ORDERED: ARIP5TAB PO (04:06)
[2024-03-29] MEDS ORDERED: TRAZ-227 PO (04:06)
[2024-03-29] MEDS ORDERED: HYDR50TA69 PO (04:06)
[2024-03-29] MEDS ORDERED: VENL75CA78 PO (04:06)
--- NOTE | 2024-03-29 14:33 | DVHPN2 ---
Subjective Just had another seizure today EEG was done waiting on the report Once he is medically stable he will be transferred for acute psychiatric treatment Changes from previous H/P or p: Changes Eyes: No Pain, No Vision change, No Conjunctivae inflammation, No Eyelid inflammation, No Other, No Redness ENT: No Ear pain, No Ear discharge, No Nose pain, No Nose discharge, No Nose congestion, No Mouth pain, No Mouth swelling, No Throat pain, No Throat swelling, No Other Cardiovascular: No Chest Pain, No Palpitations, No Orthopnea, No Paroxysmal Noc. Dyspnea, No Edema, No Lt Headedness, No Other Respiratory: No Cough, No Dry, No Shortness of breath, No SOB with excertion, No Wheezing, No Hemoptysis, No Pleuritic Pain, No Sputum, No Other Gastrointestinal: No Nausea, No Vomiting, No Abdominal Pain, No Diarrhea, No Constipation, No Melena, No Hematochezia, No Other Genitourinary: No Dysuria, No Frequency, No Incontinence, No Hematuria, No Retention, No Other Musculoskeletal: No other, No neck pain, No shoulder pain, No arm pain, No back pain, No hand pain, No leg pain, No foot pain Objective Vitals Vital Signs Date Time Temp Pulse Resp B/P (MAP) Pulse Ox O2 Delivery O2 Flow Rate FiO2 03/29/24 13:00 98.0 71 17 90/54 (66) 97 98.0 03/29/24 08:00 Nasal Cannula* 2 28 Intake/Output Intake and Output 03/29/24 06:59 Intake Total 0 ml Output Total 700 ml Balance -700 ml Intake Oral 0 ml Output Urine Total 700 ml General Appearance: Alert, Oriented X3, Cooperative, No acute distress Lungs: Clear to auscultation, Normal air movement Cardiovascular: Regular rate, Normal S1, Normal S2 Abdomen: Normal bowel sounds, Soft, No tenderness Extremities: No edema Medications Current Medications Medications Dose Ordered Sig/Rosalba Route Start Time Stop Time Status Last Admin Dose Admin Hydroxyzine Pamoate 50 mg BID PRN PO 03/27/24 11:30 Trazodone HCl 50 mg HS PO 03/27/24 22:00 03/28/24 22:26 50 MG Venlafaxine HCl 75 mg DAILY PO 03/28/24 10:00 03/29/24 09:22 75 MG Sodium Chloride 10 ml Q8HR IV 03/27/24 22:00 03/29/24 13:52 10 ML Ondansetron HCl 4 mg Q4HP PRN IV 03/27/24 17:00 Docusate Sodium 100 mg BIDPRN PRN PO 03/27/24 17:00 Nitroglycerin 0.4 mg Q5MINP PRN SL 03/27/24 17:00 Morphine Sulfate 2 mg Q30M PRN IV 03/27/24 17:00 Ibuprofen 600 mg Q6HP PRN PO 03/27/24 17:00 Divalproex Sodium 1,000 mg HS PO 03/28/24 22:00 03/28/24 22:26 1,000 MG Divalproex Sodium 500 mg QAM PO 03/29/24 07:00 03/29/24 06:34 500 MG Lorazepam 1 mg Q5MINP PRN IV 03/28/24 21:30 Laboratory Results Laboratory Tests 03/28/24 03:20 Assessment/Plan Assessment/Plan Suicide attempt Drug overdose Depression Schizophrenia Seizure disorder Morbid obesity Plan 03/28/2024: The patient was seen by tele psychiatry and was recommended to transfer to behavioral health when medically cleared 5150, voluntary, patient is willing to go to psychiatric treatment Consult neurology CT scan of the head: Negative Resume the home medications: Depakote, hydroxyzine, trazodone, Effexor 03/29/2024: Patient had more seizures Continue Depakote 500 mg 3 times a day EEG is done, result is pending Lorazepam as needed for breakthrough seizures Effexor 75 mg daily Trazodone 50 mg daily Plan discussed with: Patient My Orders Orders - BERNARDINO COWART MD Procedure Category Date Status Time * Segregator CONS 03/29/24 Transmitted Consult 04:08 Date of Service: Mar 29, 2024 Billing Provider: BERNARDINO COWART MD Common Visit Codes: [id number] INP/OBS CARE(HIGH) BERNARDINO COWART MD Mar 29, 2024 14:33
[2024-03-29] MEDS: LORazepam 2MG/ML-1ML VIAL IV PRN (14:39)
--- NOTE | 2024-03-29 23:19 | DVHPN2 ---
Progress Note - Dictate Date Seen: Mar 29, 2024 Medical Necessity Reason Pt with a Central, PICC or Fol: No Subjective Mr. Bob is a 23 years old right-handed gentleman with a history of anxiety, depression, schizophrenia, the patient was brought to the [facility] on 03/26/24 with a chief company of overdosing with Raymundo. I have seen and examined the patient, talked to her sitter and the patient The patient was had three seizure today, but nurse suspected psychogenic in nature RN note 03/29/24 14:15 : Seizure activity. Per sitter, lasted 45 seconds, 03/29/24 15:12: Patient having full body shaking, last less than a minute. Postictal patient was immediate to giving RN arm for blood pressure and a finger for pulse ox. UDS, 03/26/2024: Negative Plasma alcohol, 03/26/2024: Normal CBC, 03/28/2024: Okay CMP, 03/28/2024: Unremarkable CT head, 03/28/24: No evidence of acute intracranial abnormality vital signs Vital Sign Date Time Temp Pulse Resp B/P (MAP) Pulse Ox O2 Delivery O2 Flow Rate FiO2 03/29/24 20:00 17 99 Nasal Cannula* 2 28 03/29/24 17:00 98.0 89 100/73 (82) 98.0 Total Intake and Output 03/28/24 03/28/24 03/29/24 15:00 23:00 07:00 Intake Total 0 ml Output Total 700 ml Balance -700 ml 0 ml medications Current Medications Medications Dose Ordered Sig/Rosalba Route Start Time Stop Time Status Last Admin Dose Admin Hydroxyzine Pamoate 50 mg BID PRN PO 03/27/24 11:30 Trazodone HCl 50 mg HS PO 03/27/24 22:00 03/29/24 21:21 50 MG Venlafaxine HCl 75 mg DAILY PO 03/28/24 10:00 03/29/24 09:22 75 MG Sodium Chloride 10 ml Q8HR IV 03/27/24 22:00 03/29/24 21:21 10 ML Ondansetron HCl 4 mg Q4HP PRN IV 03/27/24 17:00 Docusate Sodium 100 mg BIDPRN PRN PO 03/27/24 17:00 Nitroglycerin 0.4 mg Q5MINP PRN SL 03/27/24 17:00 Morphine Sulfate 2 mg Q30M PRN IV 03/27/24 17:00 Ibuprofen 600 mg Q6HP PRN PO 03/27/24 17:00 Divalproex Sodium 1,000 mg HS PO 03/28/24 22:00 03/29/24 21:21 1,000 MG Divalproex Sodium 500 mg QAM PO 03/29/24 07:00 03/29/24 06:34 500 MG Lorazepam 1 mg Q5MINP PRN IV 03/28/24 21:30 03/29/24 15:10 1 MG objective General: the patient is well developed and nourished. No acute distress. MENTAL STATUS: Awake and alert. Oriented to person, place, time and general circumstances. Able to give personal history SPEECH, LANGUAGE, HIGHER CORTICAL FUNCTION: no aphasia or dysathria. CRANIAL NERVES: Pupils are equal, round and reactive. EOMs full and conjugate. No nystagmus. Facial sensation intact in all three divisions bilaterally. Mandibular strength intact. Facial muscles symmetrical and strength intact. SENSATION: Sensation to touch and pinprick is normal. MOTOR: Normal tone in the upper and lower extremity. Normal muscle bulk. No fasciculations. No abnormal movements or posturing. Muscle strength of the major groups in the extremities is 5/5. REFLEXES: Deep tendon reflexes normal and symmetrical. No pathological reflexes. CEREBELLAR/COORDINATION: Finger to nose is normal bilaterally. GAIT/STATION: deferred. laboratory and microbiology Laboratory Tests 03/28/24 03:20 Test 03/28/24 03:20 Range/Units Serum Glucose 85 74-106 mg/dL Problem List Grand mal seizure x 3 since 03/2023, the one on 03/27/2024 was with atypical feature Seizure activity on 03/29/2024 were with atypical features Schizophrenia Abilify overdosing Assessment/Plan Monitoring Supportive treatment Telemetry 5150 hold EEG Depakote 500 mg t.i.d. Ativan for seizure breakthrough More recommendation per clinical course This medical document was created using an electronic medical record system with [employer] dictation system. Although this document has been carefully reviewed, there may still be some phonetic and typographical errors. These areas are purely typographical due to imperfections of the software programs, and do not reflect any compromise in the patient's medical care Prognosis poor Plan discussed with: Patient, Other MURALI MAC MD Mar 29, 2024 23:19
--- NOTE | 2024-03-30 00:22 | DVHEEG2 ---
Neurology EEG Procedural Note Procedural Note EXAM DATE: 03/29/2024 REFERRING DOCTOR: Dr. Mac TECHNIQUE: Eighteen channels of EEG, 2 channels of EOG, and 1 channel of EKG were recorded using the [employer] 10/20 system. CLINICAL DATA: The patient was referred for an EEG evaluation for the evidence of seizure disorder. MEDICATIONS: See chart BACKGROUND ACTIVITY: While the patient was awake, the background activity consisted of well regulated []Hz rhythmic waveforms, symmetrically distributed over both posterior quadrants and was reactive to eye opening. ACTIVATION: Hyperventilation: Not done Photic Stimulation: Not done Sleep: Noticed IMPRESSION: This is a normal EEG. No focal, lateralized, or epileptiform features are noted. If clinically indicated to rule out a seizure disorder, recommend repeat EEG with sleep deprivation. The EKG channel showed a regular heart rate of 72 per minute. [place] [address] MURALI MAC MD Mar 30, 2024 00:22
[2024-03-30 08:00] VITALS: RESP 17; O2SAT 99
[2024-03-30 08:30] VITALS: PULSE 67
--- NOTE | 2024-03-30 09:13 | DVHDS2 ---
Discharge Summary Date of Admission Mar 27, 2024 at 16:53 Date of Discharge: Mar 30, 2024 Labs/Diagnostic Data: Laboratory Results Test 03/28/24 03:20 03/27/24 15:43 03/26/24 23:30 White Blood Count 9.0 10^3/uL (4.4-10.8) Red Blood Count 5.03 10^6/uL (4.5-5.90) Hemoglobin 14.2 g/dL (13.5-17.5) Hematocrit 42.2 % (41.0-53.0) Mean Corpuscular Volume 84.0 fL (80.0-100.0) Mean Corpuscular Hemoglobin 28.2 pg (28.0-32.0) Mean Corpuscular Hemoglobin Concent 33.6 g/dL (32.0-36.0) Red Cell Distribution Width 13.4 % (11.8-14.3) Platelet Count 290 10^3/uL (140-450) Mean Platelet Volume 7.2 fL (6.9-10.8) Neutrophils (%) (Auto) 47.9 % (37.0-80.0) Lymphocytes (%) (Auto) 45.2 % (10.0-50.0) Monocytes (%) (Auto) 5.9 % (0.0-12.0) Eosinophils (%) (Auto) 0.7 % (0.0-7.0) Basophils (%) (Auto) 0.3 % (0.0-2.0) Neutrophils # (Auto) 4.3 10 ^3/uL (1.6-8.6) Lymphocytes # (Auto) 4.1 10 ^3/uL (0.4-5.4) Monocytes # (Auto) 0.5 10 ^3/uL (0-1.3) Eosinophils # (Auto) 0.1 10 ^3/uL (0-0.8) Basophils # (Auto) 0 10 ^3/uL (0-0.2) Nucleated Red Blood Cells 0.0 % Sodium Level 143 mmol/L (136-145) Potassium Level 4.2 mmol/L (3.5-5.1) Chloride Level 109 mmol/L (98-107) Carbon Dioxide Level 29 mmol/L (20-31) Anion Gap 5 (5-15) Blood Urea Nitrogen 6 mg/dL (9-23) Creatinine 0.95 mg/dL (0.700-1.30) Glomerular Filtration Rate Calc 115 mL/min (>90) BUN/Creatinine Ratio 6.3 (10.0-20.0) Serum Glucose 85 mg/dL (74-106) Calcium Level 9.5 mg/dL (8.7-10.4) Total Bilirubin 0.5 mg/dL (0.2-1.0) Aspartate Amino Transferase (AST) 14 U/L (13-40) Alanine Aminotransferase (ALT) 49 U/L (7-40) Alkaline Phosphatase 85 U/L (46-116) Total Protein 6.7 g/dL (5.7-8.2) Albumin 4.1 g/dL (3.2-4.8) Salicylates Level < 3.0 mg/dL (-30) Acetaminophen Level < 2.0 UG/ML (10.0-20.0) Plasma/Serum Blood Alcohol < 3.0 mg/dL (<10) Urine Opiates Screen Neg (NEGATIVE) Urine Fentanyl Screen Neg (NEGATIVE) Urine Barbiturates Screen Neg (NEGATIVE) Urine Phencyclidine Screen Neg (NEGATIVE) Urine Amphetamines Screen Neg (NEGATIVE) Urine Benzodiazepines Screen Neg (NEGATIVE) Urine Cocaine Screen Neg (NEGATIVE) Urine Cannabinoids Screen Neg (NEGATIVE) Other Laboratory Tests 03/28/24 03:20 Brief Hx & Hospital Course: Final diagnoses: Suicide attempt Drug overdose Depression Schizophrenia Seizures, most likely psychogenic Morbid obesity 23 year old male overdosed on Abilify because voices told him to do so, also had reported seizures. Neurology evaluation was negative Head CT is negative EEG is normal He had several more seizure-like episodes, was awake during shaking of mostly left side of body He most likely has psychogenic seizures He is clear medically for transfer to psychiatric treatment for his schizophrenia and hallucinations Condition at Discharge: Stable Final Diagnosis/Problems List Suicide attempt Drug overdose on Abilify Depression Schizophrenia Psychogenic Seizures Morbid obesity Discharge Disposition: Psychiatric Facility SNF Discharge Will this Physician continue t: No Discharge Statement: "Patient was advised to return to the ER or call 911 if any headaches, dizziness, shortness of breath, chest pain, abdominal pain, bleeding, fevers, or worsening of medical condition. Patient was counseled about treatment plan, medications, possible side effects, patientverbalized understanding. All questions were answered to the best of my ability. This discharge took greater then 30 minutes in planning, reviewing documentation, counseling the patient, and discussing with other team members." ASSESSMENT ASSESSMENT Assessment Date of Service: Mar 30, 2024 Billing Provider: BERNARDINO COWART MD Common Visit Codes: 42403-XFU/OBS DISCH DAY >30min BERNARDINO COWART MD Mar 30, 2024 09:13
[2024-03-30] MEDS: ONDANSETRON HCL 4 MG/2 ML VIAL IV PRN (13:45)
[2024-03-30] MEDS: hydrOXYzine 25 MG TAB or CAP PO PRN (17:18)
[2024-03-30 20:00] VITALS: RESP 17; O2SAT 99
== END 2024-03-30 20:37 | DRG 817 ==
LOC: EDBD 22:51 → ER 22:51 → TELE 03-27 16:53 → TELE-WESTW 03-29 03:24
PROVIDERS: ADMIT Nurse Practitioner Family; ATTEND Internal Medicine Geriatric Medicine
PROC: 4A00X4Z Measurement of Central Nervous Electrical Activity, External Approach (ICD-10-PCS; principal; 2024-03-29)
DX: T50.902A Poisoning by unspecified drugs, medicaments and biological substances, intentional self-harm, initial encounter (principal); G40.409 Other generalized epilepsy and epileptic syndromes, not intractable, without status epilepticus; R45.851 Suicidal ideations; E66.01 Morbid (severe) obesity due to excess calories; F20.9 Schizophrenia, unspecified; F17.200 Nicotine dependence, unspecified, uncomplicated; F32.A Depression, unspecified; F19.239 Other psychoactive substance dependence with withdrawal, unspecified; Z91.51 Personal history of suicidal behavior; Z83.3 Family history of diabetes mellitus; Z79.899 Other long term (current) drug therapy; Z68.41 Body mass index [BMI] 40.0-44.9, adult
CPT/HCPCS: 36415; 70450; 80053; 80307; 80320; 80329; 85025; 95819; 99291; G0378; J2405

== ENCOUNTER 2024-05-03 20:14 | Emergency (ER) | payer MEDICAID ==
[~2024-05-03] VITALS: Ht 172.7 cm; Wt 122.0 kg
[~2024-05-03 20:14] MED LIST changes: +AMOX500C2 PO; +ARIP5TAB PO; +DIVA500T13 PO; +HYDR50TA69 PO; -IBUP-1456 PO; -MECL1TAB42 PO; -ONDA-144 PO; -PANT40TA2 PO; +TRAZ-227 PO; +VENL75CA78 PO; -ZOFR4T PO
--- NOTE | 2024-05-03 20:49 | ED.PDOC ---
History of Present Illness HPI Comments 23 y/o M, with a Hx of bipolar disorder, depression, morbid obesity, schizophrenia, and seizures and a FMHX of maternal CA and DM, is BIBA for c/o overdose, today. Per EMS report, patient endorses on taking 11x 800mg Ibuprofen tablets by accident to manage right shoulder pain he has had, lately, at around 1900, this evening. Patient's vitals were stated to have been stable and within normal limits on scene and en route. At time of assessment, patient reports no symptoms, currently, including suicidal or self-harm ideations. Chief Complaint: Overdose Time Seen by MD: 20:30 Primary Care Provider: SNEHA Reviewed Notes: Nurses Notes, Paramedic Supervisor Notes, Medications, Allergies Allergies: Coded Allergies: Fluoxetine (Verified Allergy, Unknown, 07/29/23) Home Meds Reported Medications Amoxicillin Trihydrate (Amoxicillin) 500 Mg Cap, 1 CAP PO Q8HR 03/29/24 Aripiprazole (Abilify Mycite Maintenanc) 5 Mg Tab, 1 TAB PO DAILY 03/29/24 Trazodone Hcl (Trazodone Hcl) 50 Mg Tab, 1 TAB PO HS 03/29/24 Hydroxyzine Hcl (Hydroxyzine Hcl) 50 Mg Tab, 1 TAB PO DAILY 03/29/24 Venlafaxine Hcl (Venlafaxine Hcl Er) 75 Mg Cap, 1 CAP PO DAILY 03/29/24 Divalproex Sodium (Divalproex Sodium) 500 Mg Tab, 1 TAB PO DAILY 03/29/24 Information Source: Patient, Emergency Med Personnel Mode of Arrival: EMS Severity: Moderate Timing: Hours Duration: Since onset Prehospital treatment: 12 Lead EKG, Human Resources Department Supervisor Past Medical History PAST MEDICAL HISTORY: Anxiety, Depression, Schizophrenia Past Medical History (Other): bipolar disorder, morbid obesity Surgical History: Denies all surgeries Family History Family History: Reviewed,noncontributory to illness Social History Smoker: Non-Smoker Alcohol: Denies ETOH Use Drugs: Denies Drug Use Lives In: Home Constitutional: denies: chills, diaphoresis, fatigue, fever, malaise, sweats, weakness, others EENTM: denies: blurred vision, double vision, ear bleeding, ear discharge, ear drainage, ear pain, ear ringing, eye pain, eye redness, hearing loss, mouth pain, mouth swelling, nasal discharge, nose bleeding, nose congestion, nose pain, photophobia, tearing, throat pain, throat swelling, voice changes, others Respiratory: denies: cough, hemoptysis, orthopnea, SOB at rest, shortness of breath, SOB with excertion, stridor, wheezing, others Cardiovascular: denies: chest pain, dizzy spells, diaphoresis, Dyspnea on exertion, edema, irregular heart beat, left arm pain, lightheadedness, palpitations, PND, syncope, others Gastrointestinal: denies: abdomen distended, abdominal pain, blood streaked bowels, constipated, diarrhea, dysphagia, difficulty swallowing, hematemesis, melena, nausea, poor appetite, poor fluid intake, rectal bleeding, rectal pain, vomiting, others Genitourinary: denies: burning, dysuria, flank pain, frequency, hematuria, incontinence, penile discharge, penile sore, pain, testicle pain, testicle swelling, urgency, others Neurological: denies: dizziness, fainting, headache, left sided numbness, left sided weakness, numbness, paresthesia, pre-existing deficit, right sided numbness, right sided weakness, seizure, speech problems, tingling, tremors, weakness, others Musculoskeletal: denies: back pain, gout, joint pain, joint swelling, muscle pain, muscle stiffness, neck pain, others Integumetry: denies: bruises, change in color, change in hair/nails, dryness, laceration, lesions, lumps, rash, wounds, others Allergic/Immunocompromised: denies: Difficulty Healing, Frequent Infections, Hives, Itching, others Hematologic/Lymphatic: denies: anemia, blood clots, easy bleeding, easy bruising, swollen glands, others Endocrine: denies: excessive hunger, excessive sweating, excessive thirst, excessive urination, flushing, intolerance to cold, intolerance to heat, unexplained weight gain, unexplained weight loss, others Psychiatric: denies: anxiety, bipolar disorder, depression, hopeless, panic disorder, schizophrenia, sleepless, suicidal, others All Other Systems: Reviewed and Negative Physical Exam General Appearance: No Apparent Distress HEENT: Normal ENT Inspection, Pharynx Normal, TMs Normal Neck: Full Range of Motion, Non-Tender, Normal, Normal Inspection Respiratory: Chest Non-Tender, Lungs Clear, No Accessory Muscle Use, No Respiratory Distress, Normal Breath Sounds Cardiovascular: No Edema, No JVD, No Murmur, No Gallop, Normal Peripheral Pulses, Regular Rate/Rhythm Breast Exam: Deferred Gastrointestinal: No Organomegaly, Non Tender, No Pulsatile Mass, Normal Bowel Sounds, Soft Genitalia: Deferred Pelvic: Deferred Rectal: Deferred Extremities: No calf tenderness, Normal capillary refill, Normal inspection, Normal range of motion, Non-tender, No pedal edema Musculoskeletal : Apperance: Normal Neurologic: Alert, unload associate II-XII nml as Tested, No Motor Deficits, Normal Affect, Normal Mood, No Sensory Deficits Cerebellar Function: Normal Reflexes: Normal Skin: Dry, Normal Color, Warm Lymphatic: No Adenopathy Was a procedure done? Was a procedure done?: No Differential Dx Considerations may include: overdose, inappropriate medication intake X-Ray, Labs, Meds, VS Vital Signs Date Time Temp Pulse Resp B/P (MAP) Pulse Ox O2 Delivery O2 Flow Rate FiO2 05/03/24 20:14 97.0 100 17 133/86 (102) 96 Lab Test 05/03/24 20:51 Range/Units White Blood Count Pending Red Blood Count Pending Hemoglobin Pending Hematocrit Pending Mean Corpuscular Volume Pending Mean Corpuscular Hemoglobin Pending Mean Corpuscular Hemoglobin Concent Pending Red Cell Distribution Width Pending Platelet Count Pending Mean Platelet Volume Pending Neutrophils (%) (Auto) Pending Lymphocytes (%) (Auto) Pending Monocytes (%) (Auto) Pending Basophils (%) (Auto) Pending Neutrophils # (Auto) Pending Lymphocytes # (Auto) Pending Monocytes # (Auto) Pending Sodium Level Pending Potassium Level Pending Chloride Level Pending Carbon Dioxide Level Pending Anion Gap Pending Blood Urea Nitrogen Pending Creatinine Pending Glomerular Filtration Rate Calc Pending BUN/Creatinine Ratio Pending Serum Glucose Pending Calcium Level Pending Total Bilirubin Pending Aspartate Amino Transferase (AST) Pending Alanine Aminotransferase (ALT) Pending Alkaline Phosphatase Pending Total Protein Pending Albumin Pending Salicylates Level Pending Acetaminophen Level Pending Plasma/Serum Blood Alcohol Pending At this time, the patient's CBC and chemistry panel pending the salicylate as well as the acetaminophen level and alcohol level are pending Did speak with poison control and they stated that the patient will be observed for approximately 4 hours The patient will be signed out to Dr. Michel The patient was being signed out as this time. The patient was currently under the observation Time of 1ST Reevaluation: 21:00 Reevaluation 1ST: Unchanged Patient Education/Counseling: Diagnosis, Treatment, Prognosis Family Education/Counseling: No Family Present Departure 1 Departure Time of Disposition: 21:22 Impression: Primary Impression: Accidental ibuprofen overdose Qualified Codes: T39.311A - Poisoning by propionic acid derivatives, accidental (unintentional), initial encounter Disposition: 30 STILL A PATIENT Condition: Fair Critical Care Note Critical Care Time?: No Stability Stability form required: No Heart Score Heart Score: Heart Score Response (Comments) Value History N/A 0 EKG N/A 0 Age N/A 0 Risk Factors N/A 0 Troponin N/A 0 Total 0 I personally scribed for MALIK CASTELAN MD ([email or web address]) on 05/03/24 at 20:49. Electronically submitted by Bhanu Tripp ([email or web address]). MALIK CASTELAN MD May 03, 2024 20:49
[2024-05-03 21:15] LABS: Basophils # (auto) 0 10 ^3/uL (0-0.2); Basophils % (auto) 0.2 % (0.0-2.0); Eosinophils # (auto) 0.1 10 ^3/uL (0-0.8); Eosinophils % (auto) 0.6 % (0.0-7.0); Hematocrit 42.5 % (41.0-53.0); Hemoglobin 14.4 g/dL (13.5-17.5); Lymphocytes # (auto) 3.8 10 ^3/uL (0.4-5.4); Lymphocytes % (auto) 32.8 % (10.0-50.0); Mean Corpuscular Hemoglobin 28.3 pg (28.0-32.0); Mean Corpuscular Hgb Conc. 33.8 g/dL (32.0-36.0); Mean Corpuscular Volume 83.7 fL (80.0-100.0); Monocytes # (auto) 1.1 10 ^3/uL (0-1.3); Monocytes % (auto) 9.7 % (0.0-12.0); Neutrophils # (auto) 6.5 10 ^3/uL (1.6-8.6); Neutrophils % (auto) 56.7 % (37.0-80.0); Nucleated Red Blood Cells % 0.1 %; Platelet Count (auto) 279 10^3/uL (140-450); Red Blood Cells 5.07 10^6/uL (4.5-5.90); Red Cell Distribution Width 13.6 % (11.8-14.3); White Blood Cell 11.5 10^3/uL (4.4-10.8)
[2024-05-03 21:32] LABS: Albumin 4.3 g/dL (3.2-4.8); Anion Gap 6 (5-15); Aspartate Aminotransferase 19 U/L (13-40); Blood Alcohol < 3.0 mg/dL (<10); Blood Urea Nitrogen 12 mg/dL (9-23); Calcium 9.6 mg/dL (8.7-10.4); Carbon Dioxide 27 mmol/L (20-31); Chloride 106 mmol/L (98-107); Potassium 4.5 mmol/L (3.5-5.1); Sodium 139 mmol/L (136-145)
[2024-05-03 21:33] LABS: Total Protein 7.1 g/dL (5.7-8.2)
[2024-05-03 21:36] LABS: Acetaminophen < 2.0 UG/ML (10.0-20.0); Alanine Aminotransferase 45 U/L (7-40); Alkaline Phosphatase 129 U/L (46-116); Bilirubin, Total < 0.2 mg/dL (0.2-1.0); Glucose 136 mg/dL (74-106)
[2024-05-03 21:58] LABS: Salicylate < 3.0 mg/dL (-30)
[2024-05-03 22:30] LABS: Amphetamine Screen, Urine Neg (NEGATIVE); Benzodiazephine Screen, Urine Neg (NEGATIVE); Cannabinoid Screen, Urine Neg (NEGATIVE); Cocaine Screen, Urine Neg (NEGATIVE); Opiate Scree,Urine Neg (NEGATIVE); Phencyclidine Screen, Urine Neg (NEGATIVE)
[2024-05-03 22:42] LABS: Barbiturate Scree,Urine Neg (NEGATIVE)
[2024-05-04 02:00] VITALS: BP 132/74; PULSE 105; RESP 16; TEMP 97.5; O2SAT 98
--- NOTE | 2024-05-05 09:24 | ECG ---
[facility] Test Date: 2024-05-03 Test Time: 20:46:27 Pat Name: LUZ MARINA BALLESTEROS Department: ER Room: Gender: M Health Care Attorney: YADIRA : 2000 Requested By: MALIK CASTELAN Order Number: [id number] Reading MD: Sheng Ortiz Measurements Intervals [place] Rate: 106 P: 50 SC: 140 QRS: 94 QRSD: 101 T: 23 QT: 341 QTc: 453 Interpretive Statements Sinus tachycardia Borderline right axis deviation Borderline low voltage, extremity leads Electronically Signed On 05-05-2024 12:48:20 PST by Sheng Ortiz Please click the below link to view image of tracing.
== END 2024-05-04 02:05 | disposition home or self-care (01) ==
LOC: EDBD 20:14 → ER 20:14
DX: T39.311A Poisoning by propionic acid derivatives, accidental (unintentional), initial encounter (principal); F20.9 Schizophrenia, unspecified; Z88.8 Allergy status to other drugs, medicaments and biological substances; Z79.899 Other long term (current) drug therapy; Y92.89 Other specified places as the place of occurrence of the external cause
CPT/HCPCS: 36415; 80053; 80307; 80320; 80329; 85025; 93005

== ENCOUNTER 2024-06-03 22:56 | Emergency (ER) | payer MEDICAID ==
[~2024-06-03] VITALS: Ht 180.3 cm; Wt 109.0 kg
[2024-06-04 00:30] LABS: Basophils # (auto) 0 10 ^3/uL (0-0.2); Basophils % (auto) 0.5 % (0.0-2.0); Eosinophils # (auto) 0.1 10 ^3/uL (0-0.8); Hematocrit 42.4 % (41.0-53.0); Hemoglobin 14.2 g/dL (13.5-17.5); Lymphocytes # (auto) 3.3 10 ^3/uL (0.4-5.4); Lymphocytes % (auto) 36.1 % (10.0-50.0); Mean Corpuscular Hemoglobin 28.1 pg (28.0-32.0); Mean Corpuscular Hgb Conc. 33.5 g/dL (32.0-36.0); Monocytes # (auto) 0.9 10 ^3/uL (0-1.3); Monocytes % (auto) 10.3 % (0.0-12.0); Neutrophils # (auto) 4.7 10 ^3/uL (1.6-8.6); Neutrophils % (auto) 52.1 % (37.0-80.0); Nucleated Red Blood Cells % 0.1 %; Platelet Count (auto) 288 10^3/uL (140-450); Red Blood Cells 5.05 10^6/uL (4.5-5.90); Red Cell Distribution Width 13.4 % (11.8-14.3)
[2024-06-04 00:47] LABS: Albumin 4.5 g/dL (3.2-4.8); Alkaline Phosphatase 109 U/L (46-116); Anion Gap 8 (5-15); Aspartate Aminotransferase 29 U/L (13-40); BUN/Creatinine Ratio 9.5 (10.0-20.0); Calcium 9.8 mg/dL (8.7-10.4); Carbon Dioxide 26 mmol/L (20-31); Chloride 104 mmol/L (98-107); Sodium 138 mmol/L (136-145); Total Protein 7.5 g/dL (5.7-8.2)
[2024-06-04 00:55] VITALS: O2SAT 94
--- NOTE | 2024-06-04 00:57 | ED.PDOC ---
Psychiatric HPI Comments 23-year-old male into emergency room via EMS due to suicidal ideations. Patient has history of anxiety, depression, schizophrenia and seizures. Claims he has good compliance to his medications. He does have history of previous suicide attempts by cutting and overdose of pills At about 2230 hours he intentionally took 30 tablets of Motrin 800 mg in an attempt to harm himself. Currently complaining of abdominal pain but denies any nausea or vomiting. Patient admits to auditory and visual hallucinations with the voices telling him to harm himself. Chief Complaint: Suicidal Time Seen by MD: 00:53 Primary Care Provider: SNEHA Information Source: Patient Mode of Arrival: EMS Severity: Unable to Care for Self, Unable to Control Self Severity of Pain: Moderate Severity of Mental Status: Moderate Severity of Symptoms: Moderate Timing: Hours Duration: Since onset Prehospital treatment: None Presents with: Depression, Anxiety, Unclear Thinking, Bizarre Behavior, Suicidal Ideation Attempt: Ingestion Ingestion: Intentional, Multiple, Ingestion Observed, Drug(s) Ingested (Motrin 800 mg), Amount Ingested (30 tablets) Circumstance: Medical Clearance Stressors: Relationships History of: Depression, Anxiety, Schizophrenia, Suicidal Attempt Associated signs and symptoms: Depression, Hopeless, Anxiety, Hallucinations, Abdominal Pain Review of Systems REVIEW OF SYSTEMS: No fever, no chills, or fatigue HEENT: No sore throat, no earache, no congestion, no neck pain. Cardiac: No chest pain. No palpitations. Lungs: No shortness of breath, no cough. GI: No nausea, no vomiting, no diarrhea, no constipation, (+) abdominal pain : No dysuria, frequency, or urgency. No hematuria. Musculoskeletal: No joint pain , no joint swelling, no extremity edema. Skin: No rash, no itching. Neuro: No headache, no dizziness, no weakness (+) suicidal Vital Signs Vital Signs Date Time Temp Pulse Resp B/P (MAP) Pulse Ox O2 Delivery O2 Flow Rate FiO2 06/04/24 05:00 83 15 123/74 (90) 94 06/04/24 01:00 97.7 97.7 06/04/24 00:55 Room Air* 0 21 Physical Exam General: Awake, alert and oriented. No acute distress. Skin: Skin in warm, dry and intact. Appropriate color for ethnicity. Nailbeds pink with no cyanosis. HEENT: The head is normocephalic and atraumatic. Conjunctivae are clear without exudates or hemorrhage. Sclera is non-icteric. EOM are intact. No signs of nystagmus. Eyelids are normal in appearance without swelling or lesions. Oral mucosa is pink and moist Neck: The neck is supple with normal range of motion. No JVD. Cardiac: Heart rate and rhythm are normal. No murmurs, gallops, or rubs are auscultated. Respiratory: No signs of respiratory distress. Lung sounds are clear in all lobes bilaterally without rales, ronchi, or wheezes. Abdominal: Abdomen is soft, non-tender without distention. Bowel sounds are present and normoactive in all four quadrants. Extremities: Upper and lower extremities are atraumatic in appearance without deformity or edema. Neurological: The patient is awake, alert and oriented to person, place, and time with normal speech. Speech is clear. There is no facial asymmetry. Psychiatric: Appropriate mood and affect. Good judgement and insight. No visual or auditory hallucinations. Past Medical History PAST MEDICAL HISTORY: Anxiety, Depression, Schizophrenia, Seizures Surgical History: Denies all surgeries Family History Family History: Reviewed,noncontributory to illness Social History Smoker: Non-Smoker Alcohol: Denies ETOH Use Drugs: Denies Drug Use Lives In: Home Was a procedure done? Was a procedure done?: No Psych Differential Dx Psych. Differential Dx: Anxiety, Depression, Suicidal OD Differential Dx: Anxiety, Depression, Drug Overdose, Intentional, Hallucinations, Suicidal Attempt, Suicidal Gesture X-Ray, Labs, Meds, VS Vital Signs Date Time Temp Pulse Resp B/P (MAP) Pulse Ox O2 Delivery O2 Flow Rate FiO2 06/04/24 05:00 83 15 123/74 (90) 94 06/04/24 03:00 72 18 112/72 (85) 98 06/04/24 01:00 97.7 87 22 120/72 (88) 94 97.7 06/04/24 00:55 94 Room Air* 0 21 06/03/24 23:20 97.5 94 18 121/81 (94) 99 Lab Test 06/04/24 00:42 06/03/24 23:58 Range/Units Urine Color Light-yellow Yellow Urine Clarity Clear Clear Urine pH 6.0 5.0-9.0 Urine Specific [place] 1.024 1.001-1.035 Urine Protein Trace H Negative Urine Ketones 1+ H Negative Urine Blood 1+ H Negative /uL Urine Nitrite Negative Negative Urine Bilirubin Negative Negative Urine Urobilinogen Normal Negative mg/dL Urine Leukocyte Esterase Negative Negative /uL Urine RBC None seen 0 - 3 /hpf Urine WBC <1 0 - 3 /hpf Urine Squamous Epithelial Cells Few <5 /hpf Urine Bacteria None seen None Seen /hpf Urine Glucose Normal Normal mg/dL Urine Opiates Screen Neg NEGATIVE Urine Fentanyl Screen Neg NEGATIVE Urine Barbiturates Screen Neg NEGATIVE Urine Phencyclidine Screen Neg NEGATIVE Urine Amphetamines Screen Neg NEGATIVE Urine Benzodiazepines Screen Neg NEGATIVE Urine Cocaine Screen Neg NEGATIVE Urine Cannabinoids Screen Neg NEGATIVE White Blood Count 9.0 4.4-10.8 10^3/uL Red Blood Count 5.05 4.5-5.90 10^6/uL Hemoglobin 14.2 13.5-17.5 g/dL Hematocrit 42.4 41.0-53.0 % Mean Corpuscular Volume 84.0 80.0-100.0 fL Mean Corpuscular Hemoglobin 28.1 28.0-32.0 pg Mean Corpuscular Hemoglobin Concent 33.5 32.0-36.0 g/dL Red Cell Distribution Width 13.4 11.8-14.3 % Platelet Count 288 140-450 10^3/uL Mean Platelet Volume 6.9 6.9-10.8 fL Neutrophils (%) (Auto) 52.1 37.0-80.0 % Lymphocytes (%) (Auto) 36.1 10.0-50.0 % Monocytes (%) (Auto) 10.3 0.0-12.0 % Eosinophils (%) (Auto) 1.0 0.0-7.0 % Basophils (%) (Auto) 0.5 0.0-2.0 % Neutrophils # (Auto) 4.7 1.6-8.6 10 ^3/uL Lymphocytes # (Auto) 3.3 0.4-5.4 10 ^3/uL Monocytes # (Auto) 0.9 0-1.3 10 ^3/uL Eosinophils # (Auto) 0.1 0-0.8 10 ^3/uL Basophils # (Auto) 0 0-0.2 10 ^3/uL Nucleated Red Blood Cells 0.1 % Sodium Level 138 136-145 mmol/L Potassium Level 4.0 3.5-5.1 mmol/L Chloride Level 104 98-107 mmol/L Carbon Dioxide Level 26 20-31 mmol/L Anion Gap 8 5-15 Blood Urea Nitrogen 8 L 9-23 mg/dL Creatinine 0.84 0.700-1.30 mg/dL Glomerular Filtration Rate Calc 125 >90 mL/min BUN/Creatinine Ratio 9.5 L 10.0-20.0 Serum Glucose 121 H 74-106 mg/dL Calcium Level 9.8 8.7-10.4 mg/dL Total Bilirubin 0.2 0.2-1.0 mg/dL Aspartate Amino Transferase (AST) 29 13-40 U/L Alanine Aminotransferase (ALT) 51 H 7-40 U/L Alkaline Phosphatase 109 46-116 U/L Total Protein 7.5 5.7-8.2 g/dL Albumin 4.5 3.2-4.8 g/dL Thyroid Stimulating Hormone (TSH) 3.69 0.55-4.78 uIU/mL Plasma/Serum Blood Alcohol < 3.0 <10 mg/dL Time of 1ST Reevaluation: 00:48 Reevaluation 1ST: Unchanged Patient Education/Counseling: Diagnosis, Treatment Family Education/Counseling: No Family Present Departure 1 Departure Time of Disposition: 06:04 Impression: Primary Impression: Intentional overdose Additional Impression: Suicidal ideation Disposition: 30 STILL A PATIENT Condition: Stable Comments 23-year-old male with overdose of 30 tablets of 800 mg ibuprofen. He has suicidal ideation Patient completed 6 hour observation in the ED with no symptoms. Pending psychiatric evaluation. Critical Care Note Critical Care Time?: No Stability Stability form required: No I personally scribed for CHEL AREVALO MD ([email or web address]) on 06/04/24 at 00:57. Electronically submitted by Curt Head ([email or web address]). CHEL AREVALO MD Jun 04, 2024 00:57
[2024-06-04 00:58] LABS: Alanine Aminotransferase 51 U/L (7-40); Bilirubin, Total 0.2 mg/dL (0.2-1.0); Blood Urea Nitrogen 8 mg/dL (9-23); Glucose 121 mg/dL (74-106)
[2024-06-04 01:38] LABS: Urine Bacteria None Seen /hpf (None Seen)
[2024-06-04 01:42] LABS: Blood Alcohol < 3.0 mg/dL (<10)
[2024-06-04 02:05] LABS: Barbiturate Scree,Urine Neg (NEGATIVE)
[2024-06-04 02:14] LABS: Amphetamine Screen, Urine Neg (NEGATIVE); Benzodiazephine Screen, Urine Neg (NEGATIVE); Cannabinoid Screen, Urine Neg (NEGATIVE); Cocaine Screen, Urine Neg (NEGATIVE); Opiate Scree,Urine Neg (NEGATIVE); Phencyclidine Screen, Urine Neg (NEGATIVE)
[2024-06-04 02:40] LABS: Urine Blood 1+ /uL (Negative); Urine Clarity Clear (Clear); Urine Color Light-Yellow (Yellow); Urine Protein, UAD TRACE (Negative); Urine Specific Gravity 1.024 (1.001-1.035); Urine Squamous Epithelial Cell FEW /hpf (<5); Urine Urobilinogen Normal (Negative); Urine WBC <1 /hpf (0 - 3)
[2024-06-04 07:31] LABS: Basophils # (auto) 0 10 ^3/uL (0-0.2); Basophils % (auto) 0.3 % (0.0-2.0); Eosinophils # (auto) 0.1 10 ^3/uL (0-0.8); Eosinophils % (auto) 1.1 % (0.0-7.0); Hematocrit 40.8 % (41.0-53.0); Hemoglobin 13.8 g/dL (13.5-17.5); Lymphocytes # (auto) 3.7 10 ^3/uL (0.4-5.4); Lymphocytes % (auto) 39.7 % (10.0-50.0); Mean Corpuscular Hemoglobin 28.3 pg (28.0-32.0); Mean Corpuscular Hgb Conc. 33.8 g/dL (32.0-36.0); Mean Corpuscular Volume 83.6 fL (80.0-100.0); Monocytes # (auto) 1.2 10 ^3/uL (0-1.3); Monocytes % (auto) 12.6 % (0.0-12.0); Neutrophils # (auto) 4.3 10 ^3/uL (1.6-8.6); Neutrophils % (auto) 46.3 % (37.0-80.0); Nucleated Red Blood Cells % 0.1 %; Platelet Count (auto) 274 10^3/uL (140-450); Red Blood Cells 4.88 10^6/uL (4.5-5.90); Red Cell Distribution Width 13.3 % (11.8-14.3); White Blood Cell 9.2 10^3/uL (4.4-10.8)
[2024-06-04 09:10] LABS: Acetaminophen < 2.0 UG/ML (10.0-20.0); Salicylate < 3.0 mg/dL (-30)
--- NOTE | 2024-06-04 10:19 | DVHINCON2 ---
Date of service: Jun 04, [address] Ruben Hightower Reason for Consultation Medication management and History of Present Illness Chief complaint: "I overdosed on ibuprofen". History of present illness: This is a 23 year male who was seen for evaluation via telepsychiatry. Patient reported that he attempted suicide by trying to overdose on ibuprofen. Patient reported that he has been feeling more depressed for last one month. He reported having trouble sleeping, loss of interest, energy low and he feels hopeless and worthless. He denied any homicidal ideation. He reported having visual hallucination. He denied any auditory hallucination. He denied any paranoia. Past psychiatric history: Patient reported 13 previous inpatient psychiatric hospitalization. Patient reported that he has been diagnosed bipolar disorder. He reported two suicide attempts in the past. Past Medical History As per history and physical. Past Surgical History As per history and physical. Family History: Patient reports no known family medical history. Family History He denied any family history of any psychiatric illness. Social History Patient is single and has no children. Patient is unemployed. He is living with his mother. Substance use: Denied Allergies: Coded Allergies: Fluoxetine (Verified Allergy, Unknown, 07/29/23) Home Meds Reported Medications Amoxicillin Trihydrate (Amoxicillin) 500 Mg Cap, 1 CAP PO Q8HR 03/29/24 Aripiprazole (Abilify Mycite Maintenanc) 5 Mg Tab, 1 TAB PO DAILY 03/29/24 Trazodone Hcl (Trazodone Hcl) 50 Mg Tab, 1 TAB PO HS 03/29/24 Hydroxyzine Hcl (Hydroxyzine Hcl) 50 Mg Tab, 1 TAB PO DAILY 03/29/24 Venlafaxine Hcl (Venlafaxine Hcl Er) 75 Mg Cap, 1 CAP PO DAILY 03/29/24 Divalproex Sodium (Divalproex Sodium) 500 Mg Tab, 1 TAB PO DAILY 03/29/24 Review of Systems Review of systems is negative except Vital Signs Vital Signs Date Time Temp Pulse Resp B/P (MAP) Pulse Ox O2 Delivery O2 Flow Rate FiO2 06/04/24 09:40 97.6 83 14 114/77 (89) 95 97.6 06/04/24 07:30 Room Air* 0 21 Physical Exam Mental status examination: This is a 23 year male who appears slightly older than his stated age. His grooming is marginal. His eye contact good. His speech is soft. He describes mood as "I am really hungry" and his affect is restricted. He reported having suicidal ideation. He denied any homicidal ideation. He denied any auditory hallucination. He reported having visual hallucination. His thought process is linear. He is oriented to place, person, year and month. His attention and concentration impaired. His memory and language intact. His judgment and insight is limited. His impulse control is limited. His fund of knowledge is intact. Labs/Diagnostic Data Labs Test 06/04/24 07:08 06/04/24 00:42 06/03/24 23:58 Range/Units White Blood Count 9.2 4.4-10.8 10^3/uL Red Blood Count 4.88 4.5-5.90 10^6/uL Hemoglobin 13.8 13.5-17.5 g/dL Hematocrit 40.8 L 41.0-53.0 % Mean Corpuscular Volume 83.6 80.0-100.0 fL Mean Corpuscular Hemoglobin 28.3 28.0-32.0 pg Mean Corpuscular Hemoglobin Concent 33.8 32.0-36.0 g/dL Red Cell Distribution Width 13.3 11.8-14.3 % Platelet Count 274 140-450 10^3/uL Mean Platelet Volume 6.8 L 6.9-10.8 fL Neutrophils (%) (Auto) 46.3 37.0-80.0 % Lymphocytes (%) (Auto) 39.7 10.0-50.0 % Monocytes (%) (Auto) 12.6 H 0.0-12.0 % Eosinophils (%) (Auto) 1.1 0.0-7.0 % Basophils (%) (Auto) 0.3 0.0-2.0 % Neutrophils # (Auto) 4.3 1.6-8.6 10 ^3/uL Lymphocytes # (Auto) 3.7 0.4-5.4 10 ^3/uL Monocytes # (Auto) 1.2 0-1.3 10 ^3/uL Eosinophils # (Auto) 0.1 0-0.8 10 ^3/uL Basophils # (Auto) 0 0-0.2 10 ^3/uL Nucleated Red Blood Cells 0.1 % Salicylates Level < 3.0 -30 mg/dL Acetaminophen Level < 2.0 L 10.0-20.0 UG/ML Urine Color Light-yellow Yellow Urine Clarity Clear Clear Urine pH 6.0 5.0-9.0 Urine Specific [place] 1.024 1.001-1.035 Urine Protein Trace H Negative Urine Ketones 1+ H Negative Urine Blood 1+ H Negative /uL Urine Nitrite Negative Negative Urine Bilirubin Negative Negative Urine Urobilinogen Normal Negative mg/dL Urine Leukocyte Esterase Negative Negative /uL Urine RBC None seen 0 - 3 /hpf Urine WBC <1 0 - 3 /hpf Urine Squamous Epithelial Cells Few <5 /hpf Urine Bacteria None seen None Seen /hpf Urine Glucose Normal Normal mg/dL Urine Opiates Screen Neg NEGATIVE Urine Fentanyl Screen Neg NEGATIVE Urine Barbiturates Screen Neg NEGATIVE Urine Phencyclidine Screen Neg NEGATIVE Urine Amphetamines Screen Neg NEGATIVE Urine Benzodiazepines Screen Neg NEGATIVE Urine Cocaine Screen Neg NEGATIVE Urine Cannabinoids Screen Neg NEGATIVE Sodium Level 138 136-145 mmol/L Potassium Level 4.0 3.5-5.1 mmol/L Chloride Level 104 98-107 mmol/L Carbon Dioxide Level 26 20-31 mmol/L Anion Gap 8 5-15 Blood Urea Nitrogen 8 L 9-23 mg/dL Creatinine 0.84 0.700-1.30 mg/dL Glomerular Filtration Rate Calc 125 >90 mL/min BUN/Creatinine Ratio 9.5 L 10.0-20.0 Serum Glucose 121 H 74-106 mg/dL Calcium Level 9.8 8.7-10.4 mg/dL Total Bilirubin 0.2 0.2-1.0 mg/dL Aspartate Amino Transferase (AST) 29 13-40 U/L Alanine Aminotransferase (ALT) 51 H 7-40 U/L Alkaline Phosphatase 109 46-116 U/L Total Protein 7.5 5.7-8.2 g/dL Albumin 4.5 3.2-4.8 g/dL Thyroid Stimulating Hormone (TSH) 3.69 0.55-4.78 uIU/mL Plasma/Serum Blood Alcohol < 3.0 <10 mg/dL Assessment Patient with a diagnosis of bipolar disorder most recent depressed severe with psychosis who had overdosed on ibuprofen. Plan/Recommendation I will recommend 5150 hold for danger to self and transferred to inpatient psychiatric level of care. I will start him on Zoloft 50 mg p.o. daily and Zyprexa 10 mg p.o. q.h.s.. Care was coordinated with the patient and his RN. Plan discussed with: Patient OSCAR DUCKWORTH MD Jun 04, 2024 10:19
[2024-06-04] MEDS: SERTRALINE HCL 50 MG TAB PO SCH (13:17)
[2024-06-04 16:53] VITALS: BP 118/73; PULSE 94; RESP 15; TEMP 98.1; O2SAT 94
[2024-06-04] MEDS ORDERED: OLANZapine 5 MG TAB PO SCH (22:00)
== END 2024-06-04 17:10 | disposition short-term general hospital (02) ==
LOC: EDBD 22:56 → ER 22:56
DX: T39.312A Poisoning by propionic acid derivatives, intentional self-harm, initial encounter (principal); R45.851 Suicidal ideations; F31.5 Bipolar disorder, current episode depressed, severe, with psychotic features; F41.9 Anxiety disorder, unspecified; Z79.899 Other long term (current) drug therapy
CPT/HCPCS: 36415; 80053; 80307; 80320; 80329; 81001; 84443; 85025

== ENCOUNTER 2024-07-09 21:05 | Emergency (ER) | payer MEDICAID ==
[~2024-07-09] VITALS: Ht 175.3 cm; Wt 118.2 kg
--- NOTE | 2024-07-09 21:21 | ED.PDOC ---
Psychiatric HPI Comments 24-year-old male came to ER via EMS for suicide attempt. Patient has history of anxiety, schizophrenia, bipolar disorder, states 45 minutes prior to arrival, he intentionally took 11 tablets of olanzapine 10 mg in an attempt to harm himself. He also has plans to jump off a roof. Chief Complaint: Suicidal Time Seen by MD: 21:20 Primary Care Provider: SNEHA Johansen Notes: Nurses Notes Information Source: Patient Mode of Arrival: EMS Severity: Unable to Care for Self, Unable to Control Self Severity of Pain: Moderate Severity of Mental Status: Moderate Severity of Symptoms: Moderate Timing: Minutes Duration: Since onset Presents with: Depression, Anxiety, Unclear Thinking, Bizarre Behavior, Suicidal Ideation Attempt: Ingestion Ingestion: Intentional, Ingestion Observed, Drug(s) Ingested (Olanzapine 10mg), Amount Ingested (11 tablets) Circumstance: Medical Clearance Stressors: Relationships History of: Anxiety, Schizophrenia, Bipolar Associated signs and symptoms: Depression, Hopeless, Anxiety Past Medical History PAST MEDICAL HISTORY: Anxiety, Depression, Schizophrenia, Seizures Past Medical History (Other): Bipolar disorder Surgical History: Denies all surgeries Family History Family History: Reviewed,noncontributory to illness Social History Smoker: Non-Smoker Alcohol: Denies ETOH Use Drugs: Denies Drug Use Lives In: Home Constitutional: denies: chills, diaphoresis, fatigue, fever, malaise, sweats, weakness, others EENTM: denies: blurred vision, double vision, ear bleeding, ear discharge, ear drainage, ear pain, ear ringing, eye pain, eye redness, hearing loss, mouth pain, mouth swelling, nasal discharge, nose bleeding, nose congestion, nose pain, photophobia, tearing, throat pain, throat swelling, voice changes, others Respiratory: denies: cough, hemoptysis, orthopnea, SOB at rest, shortness of breath, SOB with excertion, stridor, wheezing, others Cardiovascular: denies: chest pain, dizzy spells, diaphoresis, Dyspnea on exertion, edema, irregular heart beat, left arm pain, lightheadedness, palpitations, PND, syncope, others Gastrointestinal: denies: abdomen distended, abdominal pain, blood streaked bowels, constipated, diarrhea, dysphagia, difficulty swallowing, hematemesis, melena, nausea, poor appetite, poor fluid intake, rectal bleeding, rectal pain, vomiting, others Genitourinary: denies: burning, dysuria, flank pain, frequency, hematuria, incontinence, penile discharge, penile sore, pain, testicle pain, testicle swelling, urgency, others Neurological: denies: dizziness, fainting, headache, left sided numbness, left sided weakness, numbness, paresthesia, pre-existing deficit, right sided numbness, right sided weakness, seizure, speech problems, tingling, tremors, weakness, others Musculoskeletal: denies: back pain, gout, joint pain, joint swelling, muscle pain, muscle stiffness, neck pain, others Integumetry: denies: bruises, change in color, change in hair/nails, dryness, laceration, lesions, lumps, rash, wounds, others Allergic/Immunocompromised: denies: Difficulty Healing, Frequent Infections, Hives, Itching, others Hematologic/Lymphatic: denies: anemia, blood clots, easy bleeding, easy bruising, swollen glands, others Endocrine: denies: excessive hunger, excessive sweating, excessive thirst, excessive urination, flushing, intolerance to cold, intolerance to heat, unexplained weight gain, unexplained weight loss, others Psychiatric: reports: anxiety, bipolar disorder, schizophrenia, suicidal; denies: depression, hopeless, panic disorder, sleepless, others Physical Exam General Appearance: No Apparent Distress, Normal HEENT: Normal ENT Inspection, Pharynx Normal, TMs Normal Neck: Full Range of Motion, Non-Tender, Normal, Normal Inspection Respiratory: Chest Non-Tender, Lungs Clear, No Accessory Muscle Use, No Respiratory Distress, Normal Breath Sounds Cardiovascular: No Edema, No JVD, No Murmur, No Gallop, Normal Peripheral Pulses, Regular Rate/Rhythm Breast Exam: Deferred Gastrointestinal: No Organomegaly, Non Tender, No Pulsatile Mass, Normal Bowel Sounds, Soft Genitalia: Deferred Pelvic: Deferred Rectal: Deferred Extremities: No calf tenderness, Normal capillary refill, Normal inspection, Normal range of motion, Non-tender, No pedal edema Musculoskeletal : Apperance: Normal Neurologic: Alert, facsimile machine operator II-XII nml as Tested, No Motor Deficits, Normal Affect, Normal Mood, No Sensory Deficits Cerebellar Function: Normal Reflexes: Normal Skin: Dry, Normal Color, Warm Lymphatic: No Adenopathy EKG EKG : Pulse Rate (adult): 118 Cardiac Rhythm: ST Was a procedure done? Was a procedure done?: No Psych Differential Dx Psych. Differential Dx: Anxiety, Bipolar Disorder, Depression, Hopeless, Schizoprenia, Suicidal OD Differential Dx: Anxiety, Conversion Disorder, Depression, Drug Overdose, Intentional, Schizophrenia, Substance Abuse, Suicidal Attempt, Suicidal Gesture X-Ray, Labs, Meds, VS Vital Signs Date Time Temp Pulse Resp B/P (MAP) Pulse Ox O2 Delivery O2 Flow Rate FiO2 07/10/24 01:30 105 15 130/83 (99) 98 07/09/24 23:30 105 15 136/83 (100) 97 07/09/24 22:30 115 20 96 Room Air* 0 21 21 07/09/24 21:30 98.3 116 20 136/78 (97) 90 98.3 07/09/24 21:22 118 07/09/24 21:13 98.4 130 20 148/84 (105) 96 07/09/24 21:06 118 Lab Test 07/09/24 22:00 07/09/24 21:13 Range/Units Urine Color Colorless Yellow Urine Clarity Clear Clear Urine pH 6.5 5.0-9.0 Urine Specific [place] 1.004 1.001-1.035 Urine Protein Negative Negative Urine Ketones Negative Negative Urine Blood Negative Negative /uL Urine Nitrite Negative Negative Urine Bilirubin Negative Negative Urine Urobilinogen Normal Negative mg/dL Urine Leukocyte Esterase Negative Negative /uL Urine RBC <1 0 - 3 /hpf Urine Microscopic WBC < 1 0-3 /HPF Urine Squamous Epithelial Cells None seen <5 /hpf Urine Bacteria None seen None Seen /hpf Urine Glucose Normal Normal mg/dL Urine Opiates Screen Neg NEGATIVE Urine Fentanyl Screen Neg NEGATIVE Urine Barbiturates Screen Neg NEGATIVE Urine Phencyclidine Screen Neg NEGATIVE Urine Amphetamines Screen Neg NEGATIVE Urine Benzodiazepines Screen Neg NEGATIVE Urine Cocaine Screen Neg NEGATIVE Urine Cannabinoids Screen Neg NEGATIVE White Blood Count 7.5 4.4-10.8 10^3/uL Red Blood Count 4.92 4.5-5.90 10^6/uL Hemoglobin 13.7 13.5-17.5 g/dL Hematocrit 41.1 41.0-53.0 % Mean Corpuscular Volume 83.5 80.0-100.0 fL Mean Corpuscular Hemoglobin 27.8 L 28.0-32.0 pg Mean Corpuscular Hemoglobin Concent 33.3 32.0-36.0 g/dL Red Cell Distribution Width 13.1 11.8-14.3 % Platelet Count 244 140-450 10^3/uL Mean Platelet Volume 7.1 6.9-10.8 fL Neutrophils (%) (Auto) 38.7 37.0-80.0 % Lymphocytes (%) (Auto) 49.2 10.0-50.0 % Monocytes (%) (Auto) 10.7 0.0-12.0 % Eosinophils (%) (Auto) 1.1 0.0-7.0 % Basophils (%) (Auto) 0.3 0.0-2.0 % Neutrophils # (Auto) 2.9 1.6-8.6 10 ^3/uL Lymphocytes # (Auto) 3.7 0.4-5.4 10 ^3/uL Monocytes # (Auto) 0.8 0-1.3 10 ^3/uL Eosinophils # (Auto) 0.1 0-0.8 10 ^3/uL Basophils # (Auto) 0 0-0.2 10 ^3/uL Nucleated Red Blood Cells 0.2 % Sodium Level 139 136-145 mmol/L Potassium Level 3.8 3.5-5.1 mmol/L Chloride Level 104 98-107 mmol/L Carbon Dioxide Level 27 20-31 mmol/L Anion Gap 8 5-15 Blood Urea Nitrogen 5 L 9-23 mg/dL Creatinine 0.87 0.700-1.30 mg/dL Glomerular Filtration Rate Calc 123 >90 mL/min BUN/Creatinine Ratio 5.7 L 10.0-20.0 Serum Glucose 134 H 74-106 mg/dL Calcium Level 9.7 8.7-10.4 mg/dL Total Bilirubin 0.2 0.2-1.0 mg/dL Aspartate Amino Transferase (AST) 30 13-40 U/L Alanine Aminotransferase (ALT) 59 H 7-40 U/L Alkaline Phosphatase 104 46-116 U/L Total Protein 7.0 5.7-8.2 g/dL Albumin 4.3 3.2-4.8 g/dL Salicylates Level < 3.0 -30 mg/dL Acetaminophen Level < 2.0 L 10.0-20.0 UG/ML Plasma/Serum Blood Alcohol < 3.0 <10 mg/dL Current Medications Medications (Trade) Dose Ordered Sig/Rosalba Route Start Time Stop Time Status Last Admin Sodium Chloride 1,000 ml @ 1,000 mls/hr Q1H ONCE IVB 07/09/24 21:30 07/09/24 22:29 DC 07/09/24 21:30 Ondansetron HCl (Zofran) 4 mg ONCE ONCE IV 07/09/24 21:30 07/09/24 21:31 DC 07/09/24 23:01 All labs are normal. Tele psych is pending. Patient placed in ED ops Time of 1ST Reevaluation: 21:17 Reevaluation 1ST: Unchanged Patient Education/Counseling: Diagnosis, Treatment Family Education/Counseling: No Family Present Departure 1 Departure Time of Disposition: 06:07 Impression: Primary Impression: Suicidal ideation Additional Impression: Intentional overdose Qualified Codes: T50.902A - Poisoning by unspecified drugs, medicaments and biological substances, intentional self-harm, initial encounter Disposition: 30 STILL A PATIENT Condition: Guarded Discharged With: Self Critical Care Note Critical Care Time?: No Stability Stability form required: No Heart Score Heart Score: Heart Score Response (Comments) Value History N/A 0 EKG N/A 0 Age N/A 0 Risk Factors N/A 0 Troponin N/A 0 Total 0 I personally scribed for WARD PRAJAPATI MD ([email or web address]) on 07/09/24 at 21:21. Electronically submitted by Curt Head ([email or web address]). I personally scribed for WARD PRAJAPATI MD ([email or web address]) on 07/09/24 at 21:22. Electronically submitted by Curt Head ([email or web address]). WARD PRAJAPATI MD Jul 09, 2024 21:21
[2024-07-09] MEDS: SODIUM CHLORIDE 0.9% 1,000 ML IVB ONE (21:30)
[2024-07-09 21:32] LABS: Basophils # (auto) 0 10 ^3/uL (0-0.2); Basophils % (auto) 0.3 % (0.0-2.0); Eosinophils # (auto) 0.1 10 ^3/uL (0-0.8); Eosinophils % (auto) 1.1 % (0.0-7.0); Hematocrit 41.1 % (41.0-53.0); Hemoglobin 13.7 g/dL (13.5-17.5); Lymphocytes # (auto) 3.7 10 ^3/uL (0.4-5.4); Lymphocytes % (auto) 49.2 % (10.0-50.0); Mean Corpuscular Hemoglobin 27.8 pg (28.0-32.0); Mean Corpuscular Hgb Conc. 33.3 g/dL (32.0-36.0); Mean Corpuscular Volume 83.5 fL (80.0-100.0); Monocytes # (auto) 0.8 10 ^3/uL (0-1.3); Monocytes % (auto) 10.7 % (0.0-12.0); Neutrophils # (auto) 2.9 10 ^3/uL (1.6-8.6); Neutrophils % (auto) 38.7 % (37.0-80.0); Nucleated Red Blood Cells % 0.2 %; Platelet Count (auto) 244 10^3/uL (140-450); Red Blood Cells 4.92 10^6/uL (4.5-5.90); Red Cell Distribution Width 13.1 % (11.8-14.3); White Blood Cell 7.5 10^3/uL (4.4-10.8)
[2024-07-09 22:09] LABS: Albumin 4.3 g/dL (3.2-4.8); Alkaline Phosphatase 104 U/L (46-116); Anion Gap 8 (5-15); Aspartate Aminotransferase 30 U/L (13-40); BUN/Creatinine Ratio 5.7 (10.0-20.0); Calcium 9.7 mg/dL (8.7-10.4); Carbon Dioxide 27 mmol/L (20-31); Chloride 104 mmol/L (98-107); Potassium 3.8 mmol/L (3.5-5.1); Sodium 139 mmol/L (136-145)
[2024-07-09 22:13] LABS: Acetaminophen < 2.0 UG/ML (10.0-20.0); Salicylate < 3.0 mg/dL (-30)
[2024-07-09 22:14] LABS: Alanine Aminotransferase 59 U/L (7-40); Bilirubin, Total 0.2 mg/dL (0.2-1.0); Blood Alcohol < 3.0 mg/dL (<10); Blood Urea Nitrogen 5 mg/dL (9-23); Glucose 134 mg/dL (74-106)
[2024-07-09 22:28] LABS: Urine Bacteria None Seen /hpf (None Seen)
[2024-07-09 22:30] VITALS: PULSE 115; RESP 20; O2SAT 96
[2024-07-09 22:39] LABS: Urine Blood Negative /uL (Negative); Urine Clarity Clear (Clear); Urine Color Colorless (Yellow); Urine Protein, UAD Negative (Negative); Urine Specific Gravity 1.004 (1.001-1.035); Urine Squamous Epithelial Cell None Seen /hpf (<5); Urine Urobilinogen Normal (Negative); Urine WBC < 1 /HPF (0-3); Urine pH 6.5 (5.0-9.0)
[2024-07-09 22:47] LABS: Amphetamine Screen, Urine Neg (NEGATIVE); Barbiturate Scree,Urine Neg (NEGATIVE); Benzodiazephine Screen, Urine Neg (NEGATIVE); Cannabinoid Screen, Urine Neg (NEGATIVE); Cocaine Screen, Urine Neg (NEGATIVE); Opiate Scree,Urine Neg (NEGATIVE); Phencyclidine Screen, Urine Neg (NEGATIVE)
[2024-07-09] MEDS: ONDANSETRON HCL 4 MG/2 ML VIAL IV ONE (23:01)
--- NOTE | 2024-07-10 06:12 | ECG ---
[facility] Test Date: 2024-07-09 Test Time: 21:06:57 Pat Name: LUZ MARINA BALLESTEROS Department: ED Room: Gender: M Key Operator: : 2000 Requested By: WARD PRAJAPATI Order Number: [id number] Reading MD: Sheng Ortiz Measurements Intervals [place] Rate: 118 P: 54 PA: 139 QRS: 103 QRSD: 93 T: 23 QT: 330 QTc: 463 Interpretive Statements Sinus tachycardia Borderline right axis deviation Electronically Signed On 07-10-2024 8:38:46 PST by Sheng Ortiz Please click the below link to view image of tracing.
--- NOTE | 2024-07-10 14:05 | DVHINCON2 ---
Date of Service if different f: Jul 10, 2024 Consultation ([facility]) Consulting Physician: HONG BROWNING MD Progress: Somewhat better Labs Laboratory Tests Test 07/09/24 21:13 07/09/24 22:00 White Blood Count 7.5 10^3/uL (4.4-10.8) Red Blood Count 4.92 10^6/uL (4.5-5.90) Hemoglobin 13.7 g/dL (13.5-17.5) Hematocrit 41.1 % (41.0-53.0) Mean Corpuscular Volume 83.5 fL (80.0-100.0) Mean Corpuscular Hemoglobin 27.8 pg (28.0-32.0) Mean Corpuscular Hemoglobin Concent 33.3 g/dL (32.0-36.0) Red Cell Distribution Width 13.1 % (11.8-14.3) Platelet Count 244 10^3/uL (140-450) Mean Platelet Volume 7.1 fL (6.9-10.8) Neutrophils (%) (Auto) 38.7 % (37.0-80.0) Lymphocytes (%) (Auto) 49.2 % (10.0-50.0) Monocytes (%) (Auto) 10.7 % (0.0-12.0) Eosinophils (%) (Auto) 1.1 % (0.0-7.0) Basophils (%) (Auto) 0.3 % (0.0-2.0) Neutrophils # (Auto) 2.9 10 ^3/uL (1.6-8.6) Lymphocytes # (Auto) 3.7 10 ^3/uL (0.4-5.4) Monocytes # (Auto) 0.8 10 ^3/uL (0-1.3) Eosinophils # (Auto) 0.1 10 ^3/uL (0-0.8) Basophils # (Auto) 0 10 ^3/uL (0-0.2) Nucleated Red Blood Cells 0.2 % Sodium Level 139 mmol/L (136-145) Potassium Level 3.8 mmol/L (3.5-5.1) Chloride Level 104 mmol/L (98-107) Carbon Dioxide Level 27 mmol/L (20-31) Anion Gap 8 (5-15) Blood Urea Nitrogen 5 mg/dL (9-23) Creatinine 0.87 mg/dL (0.700-1.30) Glomerular Filtration Rate Calc 123 mL/min (>90) BUN/Creatinine Ratio 5.7 (10.0-20.0) Serum Glucose 134 mg/dL (74-106) Calcium Level 9.7 mg/dL (8.7-10.4) Total Bilirubin 0.2 mg/dL (0.2-1.0) Aspartate Amino Transf (AST/SGOT) 30 U/L (13-40) Alanine Aminotransferase (ALT/SGPT) 59 U/L (7-40) Alkaline Phosphatase 104 U/L (46-116) Total Protein 7.0 g/dL (5.7-8.2) Albumin 4.3 g/dL (3.2-4.8) Salicylates Level < 3.0 mg/dL (-30) Acetaminophen Level < 2.0 UG/ML (10.0-20.0) Plasma/Serum Blood Alcohol < 3.0 mg/dL (<10) Urine Color Colorless (Yellow) Urine Clarity Clear (Clear) Urine pH 6.5 (5.0-9.0) Urine Specific [place] 1.004 (1.001-1.035) Urine Protein Negative (Negative) Urine Ketones Negative (Negative) Urine Blood Negative /uL (Negative) Urine Nitrite Negative (Negative) Urine Bilirubin Negative (Negative) Urine Urobilinogen Normal mg/dL (Negative) Urine Leukocyte Esterase Negative /uL (Negative) Urine RBC <1 /hpf (0 - 3) Urine Microscopic WBC < 1 /HPF (0-3) Urine Squamous Epithelial Cells None seen /hpf (<5) Urine Bacteria None seen /hpf (None Seen) Urine Glucose Normal mg/dL (Normal) Urine Opiates Screen Neg (NEGATIVE) Urine Fentanyl Screen Neg (NEGATIVE) Urine Barbiturates Screen Neg (NEGATIVE) Urine Phencyclidine Screen Neg (NEGATIVE) Urine Amphetamines Screen Neg (NEGATIVE) Urine Benzodiazepines Screen Neg (NEGATIVE) Urine Cocaine Screen Neg (NEGATIVE) Urine Cannabinoids Screen Neg (NEGATIVE) Appetite: Fair Side effects of medications: No Appearance: Stated age Psychomotor activity: Calm Behavioral: Cooperative Eye contact: Appropriate Speech: WNL Affect: Flat Mood: Euthymic Thought processes: Linear/Goal-directed Thought content: WNL, Paucity of thoughts Suicidal ideations: Absent Homicidal ideations: Absent Orientation: Person, Place, Time, Situation Memory intact: Recent Intellect: Average Abstractability: [place] Concentration: Adequate Attention: Adequate Judgement: Limited Insight: Limited Vitals Vital Signs Date Time Temp Pulse Resp B/P (MAP) Pulse Ox O2 Delivery O2 Flow Rate FiO2 07/10/24 09:00 93 11 132/86 (101) 97 07/10/24 07:25 Room Air* 0 21 21 07/10/24 07:15 98.8 98.8 Treatment plan discussed: With staff Medication adjusted: No Labs ordered: No Psychotherapy provided: No Type: Voluntary Diagnosis: Schizophrenia by hx. Seizure disorder. Plan : This young man was admitted to the ED for a zyprexa OD with 11 pills of 10 mg each. The pt maintains that he did not try to kill himself or self-harm. He adds that he just wanted to get a buzz or high from the pills. The pt's mother is with him during the eval and she said that she doesn't think this was a suicide attempt either and that he felt overwhelmed and took more than he should have. She thinks that the pt can be safe at home moving forward. The pt is limited in spontaneous speech and there is paucity of content in his thoughts. Pt is concrete, somewhat simple in his reasoning but does not appear to be a danger to self or others currently. Perhaps it would be best if the med administration was in the hands of his mother rather than having him rely on taking his meds by himself from now on. There does not appear to be a need for inpatient psych treatment or 5150 at this time. History of Present Illness Reason for Consult : Overdose on Zyprexa. HPI : Pt says that he took 11 zyprexa in an overdose. Pt says that this was not a suicide attempt but just something he did just for the sake of it. Pt says he wanted to get high on zyprexa. Pt describes mood is ok. Pt has upcoming therapist and psychiatrist appointment on the and the . Pt denies current SI, HI, AVH. Pt's mother is present with him for this ED visit. She is swedish speaking a member of the ED staff was able to act as order processing clerk. She said that she does not think the pt tried to kill himself this time, she thinks he just felt overwhelmed and took too many pills. She also thinks that the pt can be safe at home and she'd rahter not have him go to the psych hospital this time. Past Psychiatric History : Past SA in May which led to inpatient treatment. Pt was discharged after 1 week. More than 10 lifetime hospitalizations. Tried abilify, risperdal, depakote and keppra. Pt currently taking depakote 250 mg BID, gabapentin, keppra 500 mg BID, effexor xr 75 mg daily, zyprexa 10 mg qhs. Pt has diagnosis of schizophrenia. Past Medical History : Seizures. Last had a seizure 1 month ago when he was in the hospital. Social History : Lives with mother, on disability. Finished HS. Denies drug and alcohol use. Assessment/Diagnosis/Plan Reviewed: Care Plan HONG BROWNING MD Jul 10, 2024 14:05
[2024-07-10 15:00] VITALS: BP 131/59; PULSE 99; RESP 18; TEMP 97.8; O2SAT 96
== END 2024-07-10 15:11 | disposition home or self-care (01) ==
LOC: EDBD 21:05 → ER 21:05
DX: T50.902A Poisoning by unspecified drugs, medicaments and biological substances, intentional self-harm, initial encounter (principal); R45.851 Suicidal ideations; F41.9 Anxiety disorder, unspecified; F20.9 Schizophrenia, unspecified; F31.9 Bipolar disorder, unspecified; Z79.899 Other long term (current) drug therapy; Y92.89 Other specified places as the place of occurrence of the external cause
CPT/HCPCS: 36415; 80053; 80307; 80320; 80329; 81001; 85025; 93005; 96361; 96374; 99285; J2405; J7030